=== PATIENT | female | born 1945 | race Hispanic/Latino ===

== ENCOUNTER 2017-04-27 06:36 | Inpatient (IN) | payer MEDICARE ==
[2017-04-26 16:32] VITALS: BMI 23.0
[2017-04-27] MEDS ORDERED: Propofol 10 mg/ml Inj (20 ML) ONE (07:14)
[2017-04-27] MEDS ORDERED: Succinylcholine 200 mg/10 ml Inj IV ONE (07:14)
[2017-04-27] MEDS ORDERED: Rocuronium 10 mg/ml (5 ml) ONE (07:15)
--- NOTE | 2017-04-27 07:47 | CP.PCM.CON ---
History of Present Illness - History of Present Illness History of Present Illness: 71yo female presents with LBP since 1995 after falling getting off a bus,pain waxing and waning over the years,becoming constant 5 years ago with radiation RLE and intermittant paresthesias,temporary relief with multiple epidural injections,pain meds and PT,amb independently,imaging showing lumbar spondylosis with HNP L5-S1,pt referred to neurosurgery for further eval,denies pelvic paresthesias,incontinance,further fall or trauma. Past Patient History - Infectious Disease Hx of Infectious Diseases: None - Tetanus Immunizations Tetanus Immunization: Unknown - Past Medical History & Family History Past Medical History?: Yes - Past Social History Smoking Status: Smoker Currrent Status Unknown - CARDIAC Hx Cardiac Disorders: No Hx Congestive Heart Failure: No Hx Hypercholesterolemia: No Hx Hypertension: Yes Hx Pacemaker: No - PULMONARY Hx Respiratory Disorders: No Hx Chronic Obstructive Pulmonary Disease (COPD): No - NEUROLOGICAL Hx Neurological Disorder: No HX Cerebrovascular Accident: No Hx Paralysis: No - HEENT Hx HEENT Problems: Yes Hx Cataracts: Yes Hx Macular Degeneration: Yes - RENAL Hx Chronic Kidney Disease: No Hx Renal Failure: No - ENDOCRINE/METABOLIC Hx Endocrine Disorders: Yes Hx Diabetes Mellitus Type 1: No Hx Diabetes Mellitus Type 2: Yes Hx Hypothyroidism: No - HEMATOLOGICAL/ONCOLOGICAL Hx Blood Disorders: No Hx Blood Transfusions: Yes Hx Blood Transfusion Reaction: No Hx Hepatitis C: Yes - INTEGUMENTARY Hx Dermatological Problems: No - MUSCULOSKELETAL/RHEUMATOLOGICAL Hx Musculoskeletal Disorders: No Hx Arthritis: No Hx Back Pain: Yes Hx Falls: No Hx Osteoarthritis: Yes Hx Rheumatoid Arthritis: No - GASTROINTESTINAL Hx Gastrointestinal Disorders: Yes Hx Gastritis: Yes Hx Gastroesophageal Reflux: Yes - GENITOURINARY/GYNECOLOGICAL Hx Genitourinary Disorders: No - PSYCHIATRIC Hx Emotional Abuse: No Hx Physical Abuse: No - SURGICAL HISTORY Hx Surgeries: Yes Hx Breast Biopsy: Yes (LUMPECTOMY R BREAST) Hx Cholecystectomy: Yes Hx Musculoskeletal Surgery: Yes (cervical disectomy 2008) Hx Orthopedic Surgery: Yes (right total knee replacement 2015) Other/Comment: GALLBLADDER SURGERY/CERVICAL SURGERY/EPIDURAL INJECTION - ANESTHESIA Hx Anesthesia: Yes Hx Anesthesia Reactions: No Hx Malignant Hyperthermia: No Meds Allergies/Adverse Reactions: Allergies Allergy/AdvReac Type Severity Reaction Status Date / Time No Known Allergies Allergy Verified 10/04/14 12:55 Results - Vital Signs Recent Vital Signs: Last Vital Signs Temp 97.9 F 04/27/17 07:27 Pulse 63 04/27/17 07:37 Resp 18 04/27/17 07:27 BP 121/63 04/27/17 07:27 Pulse Ox 96 04/27/17 07:27 - Labs Labs: Laboratory Results - last 24 hr 04/27/17 07:26 POC Glucose (mg/dL) 151 H Assessment & Plan - Assessment and Plan (Free Text) Assessment: 71 yo female with lumbar spondylosis and HNP right L5-S1 Plan: here today for proposed right hemilaminotomy L5-S1 with Dr. Cristobal,pt has failed conservative management and symptoms worsening effecting her ADL's,risks and benefits of surgery discussed with pt,expressed understanding and wishes to proceed.
[2017-04-27] MEDS ORDERED: Midazolam 2 MG/2 ML VIAL ONE (08:04)
[2017-04-27] MEDS ORDERED: Absorbable Gelatin Sponge Size 100 ONE (08:04)
[2017-04-27] MEDS ORDERED: Thrombin Topical 5,000 IU Spray Kit ONE (08:04)
[2017-04-27] MEDS ORDERED: Lidocaine 2% w Epi 1:100,000 Inj IJ ONE (08:05)
[2017-04-27] MEDS ORDERED: Bupivacaine HCl 0.5% PF (10 ml) Inj ONE (08:05)
[2017-04-27] MEDS ORDERED: Lactated Ringer's 1,000 ML IV ONE ×2 (08:38→09:32)
[2017-04-27] MEDS ORDERED: Absorbable Gelatin Sponge Size 100 TP ONE (09:31)
[2017-04-27] MEDS ORDERED: Neostigmine Methylsulfate 3mg/3ml Syringe IV ONE (09:36)
[2017-04-27] MEDS ORDERED: HEMOSTATIC MATRIX 10 ML DIS.NEEDLE TOP ONE (09:39)
[2017-04-27] MEDS ORDERED: HYDROmorphone 0.5 mg/0.5 ml ISec IVP PRN (10:10)
[2017-04-27] MEDS ORDERED: Oxycodone/Acetaminophen 5/325 mg Tab PO PRN (12:49)
--- NOTE | 2017-04-27 15:24 | CP.PCM.HP ---
History of Present Illness - History of Present Illness History of Present Illness: CC: S/P R L45S1 hemilaminectomy HPI: 71F with PMH DM II, HTN, Hyperlipidemia, Chronic back pain is s/p R L4-L5- S1 R hemilaminectomy after failing conservative therapy as an outpatient. Pt sustained a fall in 1995 getting off a bus. Initially the moderate to severe pain had been waxing and waning, however approximately 5 years ago, pain worsened to constant, radiating to the R lower extremity. Patient is seen in PACU, denies any complaints at this time. ROS: per HPI all other systems reviewed and neg by me PMD: Dr Felton PMH: DM II, HTN, Hyperlipidemia, chronic back pain PSH: Cholecystectomy, Cervical neck surgery, Breast lumpectomy( benign) , TKR ALLERGIES: NKDA MEDICATIONS: per reconciliation FH: Daughter DM II, Mother - Suicide at 39 years of age SH: Tobacco: 1 ppd since age 13 EtOH: denies Drugs: denies any illicit drug use Exam: GEN: WDWN, post-anesthesia HEENT: NCAT, PERRL, EOMI NECK: supple, no JVD, no lymphadenopathy CARDIAC: +S1S2 RRR LUNG: CTAB No WRR ABD: SOFT NT ND BSX4 NO MASSES NO HSM EXT: +pedal pulses, equal strength BACK: +amanda drain NEURO: AAOx3 SKIN warm, dry PSYCH normal mood, normal affect no labs available at this time repeat in AM MEDICATIONS 04/27/17 10:11 HYDROmorphone 0.2 MG/ML EQUIPMENT APPLICATION SPECIALIST [Dilaudid 0.2 MG/ML EQUIPMENT APPLICATION SPECIALIST] See Protocol IV PRN PRN Loading Bolus in m EQUIPMENT APPLICATION SPECIALIST Dose in m.2 Lockout interval in minutes: 10 Basal/Continuous dose in mg per hour: 0 Four hour (4) limit in m Inadequate analgesia after 1 hour increase EQUIPMENT APPLICATION SPECIALIST dose to __ m.2 Inadequate analgesia in 1 add hr, increase lockout inter min: 10 04/27/17 12:50 Cyclobenzaprine [Flexeril] 5 mg PO TID PRN 04/27/17 13:00 Lactated Ringer's 1,000 ml IV 75 mls/hr 04/27/17 17:00 Metformin HCl [Fortamet] 500 mg PO BID 04/27/17 21:00 ceFAZolin [Ancef] 1 gm Sodium Chloride 0.9% 100 ml IVPB Q12 04/28/17 08:06 Pneumococcal Vaccine Polyval [Pneumovax 23 Vaccine] 0.5 ml IM .ONCE ONE 04/28/17 09:00 Aspirin [Ecotrin] 81 mg PO DAILY Furosemide [Lasix] 40 mg PO DAILY Lisinopril [Zestril] 10 mg PO DAILY PARoxetine [Paxil] 20 mg PO DAILY Propranolol [Inderal LA] 60 mg PO DAILY Simvastatin [Zocor] 40 mg PO DAILY ASSESSMENT AND PLAN 71F with PMH DM II, HTN, Hyperlipidemia, Chronic back pain is s/p R L4-L5-S1 R hemilaminectomy after failing conservative therapy as an outpatient. Pt sustained a fall in 1995 getting off a bus. Initially the moderate to severe pain had been waxing and waning, however approximately 5 years ago, pain worsened to constant, radiating to the R lower extremity. Patient is seen in PACU, denies any complaints at this time. s/p R L4-S1 R hemilaminectomy and lumbar spondylosis Neurosurgery consult: Dr. Cristobal Pain management by Dr. Montoya, currently on Dilaudid facing baster jumpbasting cont flexeril stable Diabetes Mellitus stable accuchecks ISS lispro low dose cont metformin Hypertension, CAD hold ASA, cont lisinopril, cont lasix, cont inderal Hyperlipidemia cont statin Depression cont paxil VTE ppx per NSx Present on Admission - Present on Admission Any Indicators Present on Admission: No Past Patient History - Infectious Disease Hx of Infectious Diseases: None - Tetanus Immunizations Tetanus Immunization: Unknown - Past Medical History & Family History Past Medical History?: Yes - Past Social History Smoking Status: Smoker Currrent Status Unknown - CARDIAC Hx Cardiac Disorders: No Hx Congestive Heart Failure: No Hx Hypercholesterolemia: No Hx Hypertension: Yes Hx Pacemaker: No - PULMONARY Hx Respiratory Disorders: No Hx Chronic Obstructive Pulmonary Disease (COPD): No - NEUROLOGICAL Hx Neurological Disorder: No HX Cerebrovascular Accident: No Hx Paralysis: No - HEENT Hx HEENT Problems: Yes Hx Cataracts: Yes Hx Macular Degeneration: Yes - RENAL Hx Chronic Kidney Disease: No Hx Renal Failure: No - ENDOCRINE/METABOLIC Hx Endocrine Disorders: Yes Hx Diabetes Mellitus Type 1: No Hx Diabetes Mellitus Type 2: Yes Hx Hypothyroidism: No - HEMATOLOGICAL/ONCOLOGICAL Hx Blood Disorders: No Hx Blood Transfusions: Yes Hx Blood Transfusion Reaction: No Hx Hepatitis C: Yes - INTEGUMENTARY Hx Dermatological Problems: No - MUSCULOSKELETAL/RHEUMATOLOGICAL Hx Musculoskeletal Disorders: No Hx Arthritis: No Hx Back Pain: Yes Hx Falls: No Hx Osteoarthritis: Yes Hx Rheumatoid Arthritis: No - GASTROINTESTINAL Hx Gastrointestinal Disorders: Yes Hx Gastritis: Yes Hx Gastroesophageal Reflux: Yes - GENITOURINARY/GYNECOLOGICAL Hx Genitourinary Disorders: No - PSYCHIATRIC Hx Emotional Abuse: No Hx Physical Abuse: No - SURGICAL HISTORY Hx Surgeries: Yes Hx Breast Biopsy: Yes (LUMPECTOMY R BREAST) Hx Cholecystectomy: Yes Hx Musculoskeletal Surgery: Yes (cervical disectomy 2008) Hx Orthopedic Surgery: Yes (right total knee replacement 2015) Other/Comment: GALLBLADDER SURGERY/CERVICAL SURGERY/EPIDURAL INJECTION - ANESTHESIA Hx Anesthesia: Yes Hx Anesthesia Reactions: No Hx Malignant Hyperthermia: No Meds Allergies/Adverse Reactions: Allergies Allergy/AdvReac Type Severity Reaction Status Date / Time No Known Allergies Allergy Verified 10/04/14 12:55 Results - Vital Signs Recent Vital Signs: Last Vital Signs Temp 97.1 F L 04/27/17 10:35 Pulse 59 L 04/27/17 14:05 Resp 18 04/27/17 14:05 BP 121/66 04/27/17 14:05 Pulse Ox 100 04/27/17 14:05 - Labs Labs: Laboratory Results - last 24 hr 04/27/17 04/27/17 04/27/17 07:25 07:26 10:12 POC Glucose (mg/dL) 151 H 141 H Blood Type O NEGATIVE Antibody Screen Negative BBK History Checked Patient has bt
--- NOTE | 2017-04-27 16:27 | RAD ---
PROCEDURE: Intraoperative Fluoroscopy. HISTORY: PLIF FINDINGS: Fluoroscopic assistance was provided for . Please refer to the
--- NOTE | 2017-04-27 19:15 | OP ---
PROCEDURE DATE: 04/27/2017 PREOPERATIVE DIAGNOSES: Lumbar spondylosis and spondylolisthesis at 4-5, 5-1. PROCEDURE: Right L4-L5 and L5-S1 hemilaminotomy, medial facetectomy, decompression, L4-S1 posterolat eral fusion. Fluoroscopy has been used. SURGEON: Dr. Cristobal MERCHANDISING EXECUTION MANAGER: Tere Tatum. Dr. Tatum is a physician assistant manager trainee. She stayed throughou t the case from the beginning to the end, helped me perform the surgery. DESCRIPTION OF PROCEDURE: The patient was brought to the operating room, administered general endotr acheal anesthesia, placed in a prone position on a Fabian table. Care was taken to protect pressure points. Back of the lumbar area thoroughly prepped in standard sterile manner, after marking for sk in incision for lumbar laminectomy. After prepping and draping the area, skin has been incised. Ble eding skins have been controlled with bipolar shot coat tender. By using a Bovie shot coat tender, paraspinal mu scles have been detached from attachment of spinous process and lamina of L4-L5, S1 on the right side . Identification of the levels has been done with the help of fluoroscopy. Jess retractor has bee n applied to outer facet joint of L4-L5. Under microscope magnification and illumination, by using h igh-speed drill, the lamina of L4-L5 has been drilled. There is significant decrease in the interlam inar distance ____ medial facet hypertrophy. Drilling is continued until the top and bottom of the l igamentum is seen. Drilling is also continued on the medial part facets until the turn of the ligame ntum flavum has been seen. Once this has been done, thinned out surrounding lamina, medial part of t he facets, ligamentum flavum, buckled and thickened ligamentum flavum has been removed. Foraminotomy is performed. Disk space has been examined. There was a hard disk noted. Similarly at L5-S1, medi al facetectomy, hemilaminotomy performed. After that, the thinned out bone and the ligamentum flavum which is found to be buckled and thickened has been removed. The nerve root has been found to be ve ry swollen in this area. Foraminotomy has been performed. Disk space has been examined, hard disk n oted. After that, lateral aspect of facet joints have been decorticated, demineralized bone placed i n the area achieving a posterolateral fusion. Hemostasis best achieved. Fabian drain placed in the wound, brought out through a separate stab skin incision. Muscles and fascia closed with 1-0 Vicryl , subcutaneous with 3-0 Vicryl, skin has been closed with intradermal 3-0 Vicryl stitches. The patie nt tolerated the procedure. After procedure, mobilized to the recovery room in stable and awake cond ition. Ralph Cristobal MD cc: [phone] TT: 04/27/2017 19:14:13 sn
[2017-04-27] MEDS: Lactated Ringer's 1,000 ML IV SCH (20:00)
[2017-04-27] MEDS: ceFAZolin 1 GM in Sodium Chloride 0.9% 100 ML IVPB SCH (21:54)
[2017-04-27] MEDS: Insulin Lispro (humaLOG) 100 Units/ml Inj SC SCH (22:39)
[2017-04-28] MEDS: Lactated Ringer's 1,000 ML IV SCH (02:30)
[2017-04-28] MEDS: Insulin Lispro (humaLOG) 100 Units/ml Inj SC SCH ×3 (07:40→17:00)
[2017-04-28 07:43] VITALS: RESP 20
[2017-04-28] MEDS ORDERED: HYDROmorphone 0.5 mg/0.5 ml ISec IVP PRN (07:46)
[2017-04-28] MEDS ORDERED: Pneumococcal 23-Valent Vaccine IM ONE (08:06)
--- NOTE | 2017-04-28 08:26 | CP.PCM.PN ---
Subjective - Date & Time of Evaluation Date of Evaluation: 04/26/17 Time of Evaluation: 08:00 - Subjective Subjective: Patient sen and examined beside. Lying in bed in NAD. Pain is well controlled. Restless overnight. Denies any SOB, palpitations. Hemodynamcally stable, afebrile DILAN drain in place with 30 ml output overnight. Noticed to deactivate spontaneously Objective - Vital Signs/Intake and Output Vital Signs (last 24 hours): Temp Pulse Resp BP Pulse Ox 98.3 F 60 20 126/55 L 97 04/28/17 07:42 04/28/17 07:42 04/28/17 07:42 04/28/17 07:42 04/28/17 07:42 - Medications Medications: Current Medications Aspirin (Ecotrin) 81 mg PO DAILY [facility] Atorvastatin Calcium (Lipitor) 20 mg PO DAILY [facility] Cyclobenzaprine HCl (Flexeril) 5 mg PO TID PRN PRN Reason: Muscle spasm Furosemide (Lasix) 40 mg PO DAILY [facility] Hydromorphone HCl (Dilaudid) 1 mg IVP Q4 PRN PRN Reason: Pain, severe (8-10) Cefazolin Sodium 1 gm/ Sodium (Chloride) 100 mls @ 100 mls/hr IVPB Q12 [facility] Last Admin: 04/27/17 21:54 Dose: 100 mls/hr Insulin Human Lispro (Humalog) 0 units SC ACHS FITO PRN Reason: Protocol Last Admin: 04/28/17 07:40 Dose: Not Given Lisinopril (Zestril) 10 mg PO DAILY [facility] Metformin HCl (Glucophage) 500 mg PO BID [facility] Oxycodone HCl (Oxycodone Immediate Release Tab) 15 mg PO Q6 PRN PRN Reason: Pain, moderate (4-7) Paroxetine HCl (Paxil) 20 mg PO DAILY [facility] Propranolol HCl (Inderal La) 60 mg PO DAILY FITO - Constitutional Appears: Non-toxic, No Acute Distress - Head Exam Head Exam: ATRAUMATIC, NORMAL INSPECTION, NORMOCEPHALIC - Eye Exam Eye Exam: EOMI, Normal appearance, PERRL Pupil Exam: NORMAL ACCOMODATION - ENT Exam ENT Exam: Mucous Membranes Moist, Normal Exam - Neck Exam Neck Exam: Full ROM, Normal Inspection - Respiratory Exam Respiratory Exam: Clear to Ausculation Bilateral, NORMAL BREATHING PATTERN. absent: Rhonchi, Wheezes, Respiratory Distress - Cardiovascular Exam Cardiovascular Exam: REGULAR RHYTHM, RRR, +S1, +S2. absent: JVD - GI/Abdominal Exam GI & Abdominal Exam: Soft, Normal Bowel Sounds. absent: Distended, Guarding, Tenderness, Rebound - Rectal Exam Rectal Exam: Deferred - Extremities Exam Extremities Exam: Full ROM, Normal Capillary Refill, Normal Inspection. absent : Calf Tenderness, Pedal Edema - Neurological Exam Neurological Exam: Alert, Awake, CN II-XII Intact, Oriented x3 - Psychiatric Exam Psychiatric exam: Normal Affect, Normal Mood - Skin Skin Exam: Dry, Intact, Normal Color, Warm Assessment and Plan - Assessment and Plan (Free Text) Assessment: 71 y/o F with PMH DM II, HTN, Hyperlipidemia, Chronic back pain is s/p R L4-L5- S1 R hemilaminectomy after failing conservative therapy as an outpatient. Pt sustained a fall in 1995 getting off a bus. Initially the moderate to severe pain had been waxing and waning, however approximately 5 years ago, pain worsened to constant, radiating to the R lower extremity. At present post op #1 , doing well. 1.Chronic back pain -- s/p R L4-S1 R hemilaminectomy and lumbar spondylosis POD # 1 DILAN drain with 30 ml out put last 12 hours Pain is controlled on WOOD DRILLING MACHINE OPERATOR pump. Will d/c pump and start Po meds as per pain management Continue flexeril Received 3 doses of ancef empiricaly Continue incentive spirometry PT eval Neurosurgery Dr. Cristobal following 2.Diabetes Mellitus controlled accuchecks ISS lispro low dose cont metformin 3.Hypertension, CAD hold ASA, cont lisinopril, cont lasix, cont inderal 4.Hyperlipidemia cont statin 5.Depression cont paxil 6.VTE ppx per NSx
[2017-04-28] MEDS ORDERED: Propranolol 60 mg ER Cap PO SCH (09:00)
[2017-04-28] MEDS: ceFAZolin 1 GM in Sodium Chloride 0.9% 100 ML IVPB SCH (09:00)
[2017-04-28] MEDS: oxyCODONE 5 mg Immediate Release Tab PO PRN ×2 (11:16→17:07)
--- NOTE | 2017-04-28 15:10 | CP.PCM.DIS ---
Provider - Provider Date of Admission: 04/27/17 12:42 Attending physician: Trent Dickerson MD Primary care physician: Kvng Felton MD Consults: PT eval Time Spent in preparation of Discharge (in minutes): 20 Hospital Course - Lab Results Lab Results: Most Recent Lab Values POC Glucose (mg/dL) 178 mg/dL (65-110) H 04/28/17 11:08 Blood Type O NEGATIVE 04/27/17 07:25 Antibody Screen Negative 04/27/17 07:25 BBK History Checked Patient has bt 04/27/17 07:25 - Hospital Course Hospital Course: 71 y/o F with PMH DM II, HTN, Hyperlipidemia, Chronic back pain is s/p R L4-L5- S1 R hemilaminectomy after failing conservative therapy as an outpatient. Pt sustained a fall in 1995 getting off a bus. Initially the moderate to severe pain had been waxing and waning, however approximately 5 years ago, pain worsened to constant, radiating to the R lower extremity. She underwent L4-s1 right hemilaminectomy. At present post op #1, doing well.DILAN drain remove. Pt eval appreciated. Patient doing well, gait stable. Will d/c patient home on pain management. Follow up with PMD Dr. Felton and Dr. lynn. 1.Chronic back pain -- s/p R L4-S1 R hemilaminectomy and lumbar spondylosis POD # 1 2.Diabetes Mellitus 3.Hypertension, CAD 4.Hyperlipidemia 5.Depression 6.VTE ppx promote ambulation at home and ASA Discharge Exam - Head Exam Head Exam: ATRAUMATIC, NORMAL INSPECTION, NORMOCEPHALIC - Eye Exam Eye Exam: EOMI, Normal appearance, PERRL Pupil Exam: NORMAL ACCOMODATION - ENT Exam ENT Exam: Mucous Membranes Moist, Normal Exam - Neck Exam Neck exam: Full Rom, Normal Inspection - Respiratory Exam Respiratory Exam: Clear to PA & Lateral, NORMAL BREATHING PATTERN. absent: Rales, Rhonchi, Wheezes - Cardiovascular Exam Cardiovascular Exam: REGULAR RHYTHM, RRR, +S1, +S2. absent: JVD - GI/Abdominal Exam GI & Abdominal Exam: Normal Bowel Sounds, Soft. absent: Distended, Guarding, Rebound, Tenderness - Rectal Exam Rectal Exam: Deferred - Extremities Exam Extremities exam: normal capillary refill, normal inspection, pedal pulses present - Back Exam Back exam: NORMAL INSPECTION - Neurological Exam Neurological exam: Alert, CN II-XII Intact, Oriented x3, Reflexes Normal - Psychiatric Exam Psychiatric exam: Normal Affect, Normal Mood - Skin Skin Exam: Dry, Intact, Normal Color, Warm Discharge Plan - Discharge Medications Prescriptions: Cyclobenzaprine [Flexeril] 5 mg PO TID PRN #30 tab PRN Reason: Muscle Spasm oxyCODONE [oxyCODONE Immediate Release Tab] 15 mg PO Q6 PRN #30 tab PRN Reason: Pain, Severe (8-10) - Follow Up Plan Condition: GOOD Disposition: HOME/ ROUTINE Patient education suggested?: Yes Instructions: Laminectomy (DC) Referrals: Kvng Felton MD [Primary Care Provider] -
[2017-04-28 16:25] VITALS: BP 126/63; PULSE 60; TEMP 98.4; O2SAT 97
== END 2017-04-28 19:00 | disposition home or self-care (01) | DRG 460 ==
LOC: H.OPSURG 06:36 → H.MEDSURG1 12:42
PROVIDERS: ADMIT Hospitalist; ATTEND Hospitalist
PROC: 0SG30Z1 (ICD-10-PCS; principal; 2017-04-27 10:45)
DX: M47.816 Spondylosis without myelopathy or radiculopathy, lumbar region (principal); E11.9 Type 2 diabetes mellitus without complications; I10 Essential (primary) hypertension; M43.17 Spondylolisthesis, lumbosacral region; E78.5 Hyperlipidemia, unspecified; G89.29 Other chronic pain; I25.10 Atherosclerotic heart disease of native coronary artery without angina pectoris; F32.9 Major depressive disorder, single episode, unspecified

== ENCOUNTER 2017-12-07 09:57 | Day surgery (SDC) | payer MEDICARE ==
[2017-04-26 16:32] VITALS: BMI 23.0
[2017-12-07] MEDS ORDERED: MethylPREDNISolone Depo 40 mg/ml Inj ONE (10:54)
[2017-12-07] MEDS ORDERED: Bupivacaine HCl 0.25% PF (10 ml) Inj ONE (10:55)
[2017-12-07] MEDS ORDERED: Lidocaine 1% Inj (20ml) ONE (10:55)
[2017-12-07] MEDS ORDERED: Iohexol 300 10 ML ONE (10:55)
[2017-12-07 11:25] VITALS: RESP 18
[2017-12-07] MEDS ORDERED: Lidocaine 1% 5ml Abboject IV ONE (11:29)
[2017-12-07] MEDS ORDERED: Propofol 10 mg/ml Inj (20 ML) ONE (11:29)
[2017-12-07] MEDS ORDERED: Lactated Ringer's 1,000 ML IV ONE (11:35)
[2017-12-07] MEDS ORDERED: methylPREDNISolone Depo 80 mg/ml Inj IM ONE (11:42)
[2017-12-07] MEDS ORDERED: Lidocaine 1% Inj (20ml) IJ ONE (11:42)
[2017-12-07] MEDS ORDERED: Bupivacaine HCl 0.25% PF (10 ml) Inj IJ ONE (11:42)
[2017-12-07] MEDS ORDERED: Iohexol 300 100 ML IJ ONE (11:42)
[2017-12-07] MEDS ORDERED: Lactated Ringer's 1,000 ML IV SCH (12:00)
[2017-12-07] MEDS ORDERED: Sodium Chloride 0.9% 1,000 ML IV ONE (12:20)
[2017-12-07] MEDS ORDERED: Sodium Chloride 0.9% 1,000 ML IV SCH (12:30)
[2017-12-07 15:58] VITALS: BP 100/62; PULSE 60; TEMP 98; O2SAT 96
--- NOTE | 2017-12-07 17:32 | OP ---
PROCEDURE DATE: 12/07/2017 PREOPERATIVE DIAGNOSIS: Lumbar radiculopathy. POSTOPERATIVE DIAGNOSIS: Lumbar radiculopathy. PROCEDURE: Right L3-4, L4-5, L5-S1 transforaminal epidural steroid injection. SURGEON: Frank Montoya MD. TYPE OF ANESTHESIA: Monitored anesthesia care. ANESTHESIA ADMINISTERED BY: Kvng Lock MD. COMPLICATIONS: None. SPECIMEN: None. DESCRIPTION OF PROCEDURE: After we had discussion of the procedure with the patient including its risks, benefits, alternatives, outcome data, possibility of no effect or increased pain, the patient consented to the procedure. She denies any recent infections, bleeding tendencies or being on anticoagulants. The decision was then made to proceed to the OR. The patient was placed on a fluoroscopy table in a prone position with 2 pillows underneath her abdomen. The back was prepped and draped in the usual sterile fashion and sterile technique was adhered to during the entire procedure. The L3, L4 and L5 vertebral levels were first identified in the anteroposterior view. Angulation towards the right at approximately 25 degrees was used to maximize the visualization of the right L3, L4 and L5 pedicles. The skin overlying the 6 o'clock position of all three pedicles was infiltrated with 1% lidocaine using 25-gauge needle. Subsequently, a 22-gauge 3.5-inch spinal needle was incrementally advanced under fluoroscopic guidance until tip of needle worked into the intravertebral foramen. There was difficulty accessing the right L3-4 intravertebral foramen due to bone spurs, so the needle was placed right outside the desired spot. After satisfactory position of all 3 needles, approximately 0.5 mL of Isovue contrast was injected showing appropriate spread at the L4-5, L5-S1 level. After ruling out of CSF or intravenous involvement, approximately 3 mL of 0.25% Marcaine and Depo-Medrol mixture was injected into each needle. At the end of the case, the needles were removed and the patient's back was cleaned and dried. Bandages were applied. The patient was then transferred to the recovery area in good conditions without any signs of PRO SHOP ATTENDANT toxicity or any neurological deficits. She will have a followup in our office in approximately 2 to 4 weeks. Frank Montoya MD
--- NOTE | 2017-12-08 16:24 | RAD ---
PROCEDURE: Lumbar Epidural Injection HISTORY: PAIN MANAGEMENT TECHNIQUE: Fluoroscopic guidance was provided for epidural injection for pain management purposes. FINDINGS: Multiple lead needles are identified placed at at 3 mid to inferior lumbar neural foramina with limited contrast injected at the 1st and 3rd but not at the minimal needle. 43.4 minutes of fluoro time was utilized with a total radiation dose of 7.97 mGy. IMPRESSION: Fluoroscopic guidance provided for epidural injection. Please refer procedure.
== END 2017-12-07 15:15 | disposition home or self-care (01) ==
LOC: H.OPSURG 09:57
PROVIDERS: ATTEND Anesthesiology
DX: M54.16 Radiculopathy, lumbar region (principal); E11.9 Type 2 diabetes mellitus without complications; E78.5 Hyperlipidemia, unspecified; I10 Essential (primary) hypertension; F32.9 Major depressive disorder, single episode, unspecified
CPT/HCPCS: 64483; 82948; J1030; J1040; J2704; J7040; J7120; Q9967

== ENCOUNTER 2018-02-01 06:18 | Inpatient (IN) | payer MEDICARE ==
[2017-04-26 16:32] VITALS: BMI 23.0
[2018-02-01] MEDS ORDERED: Bupivacaine HCl 0.25% PF (30 ml) Inj ONE (07:12)
[2018-02-01] MEDS ORDERED: Lidocaine 1% w Epi 1:100,000 Inj ONE (07:12)
[2018-02-01] MEDS ORDERED: Thrombin Topical 5,000 Int Units Spray Kit ONE (07:13)
[2018-02-01] MEDS ORDERED: Absorbable Gelatin Sponge Size 100 ONE (07:13)
[2018-02-01] MEDS ORDERED: Phenylephrine 10 mg/ml Inj ONE (07:20)
[2018-02-01] MEDS ORDERED: Neostigmine 1:1000 (1 mg/ml) Inj ONE (07:20)
[2018-02-01] MEDS ORDERED: Succinylcholine 200 mg/10 ml Inj IV ONE (07:26)
[2018-02-01] MEDS ORDERED: Etomidate 20 mg/10ml Inj IV ONE (07:26)
[2018-02-01] MEDS ORDERED: Rocuronium 10 mg/ml (5 ml) ONE ×2 (07:26→09:14)
[2018-02-01] MEDS ORDERED: Propofol 10 mg/ml Inj (20 ML) ONE (07:26)
--- NOTE | 2018-02-01 07:26 | CP.PCM.HP ---
History of Present Illness - History of Present Illness History of Present Illness: This is a 72 y/o female with PMHx of HTN , Hep C, and DM as well as previous lumbar hemilaminotomy by me in the past who presents with progressive LBP. She states that after her initial surgery in 2017 she had relief but started to develop new LBP that is exacerbated with positioning and prolonged ambulation. It is also associated with paresthesias down BL LE and subjective " heaviness" She has been taking PO analgesia such as ibuprofen and oxycodone with minimal relief. Patient followed up with Dr. Cristobal who did follow up imaging revealing spondylolithesis and facet hypertrophy. Due to failed conservative management and previous surgical decompression, she is seeking further surgical intervention for symptom relief. She denies urinary or bowel incontinence. Present on Admission - Present on Admission Any Indicators Present on Admission: No Review of Systems - Integumentary Integumentary: As Per HPI - Neurological Neurological: As Per HPI Past Patient History - Infectious Disease Hx of Infectious Diseases: None - Tetanus Immunizations Tetanus Immunization: Unknown - Past Medical History & Family History Past Medical History?: Yes - Past Social History Smoking Status: Never Smoked - CARDIAC Hx Cardiac Disorders: No Hx Congestive Heart Failure: No Hx Hypercholesterolemia: No Hx Hypertension: Yes Hx Pacemaker: No - PULMONARY Hx Respiratory Disorders: No Hx Chronic Obstructive Pulmonary Disease (COPD): No - NEUROLOGICAL Hx Neurological Disorder: No HX Cerebrovascular Accident: No Hx Paralysis: No - HEENT Hx HEENT Problems: Yes Hx Cataracts: Yes Hx Macular Degeneration: Yes - RENAL Hx Chronic Kidney Disease: No Hx Renal Failure: No - ENDOCRINE/METABOLIC Hx Endocrine Disorders: Yes Hx Diabetes Mellitus Type 1: No Hx Diabetes Mellitus Type 2: Yes Hx Hypothyroidism: No - HEMATOLOGICAL/ONCOLOGICAL Hx Blood Disorders: No Hx Blood Transfusions: Yes Hx Blood Transfusion Reaction: No Hx Hepatitis C: Yes - INTEGUMENTARY Hx Dermatological Problems: No - MUSCULOSKELETAL/RHEUMATOLOGICAL Hx Musculoskeletal Disorders: No Hx Arthritis: No Hx Back Pain: Yes Hx Falls: No Hx Osteoarthritis: Yes Hx Rheumatoid Arthritis: No - GASTROINTESTINAL Hx Gastrointestinal Disorders: Yes Hx Gastritis: Yes Hx Gastroesophageal Reflux: Yes - GENITOURINARY/GYNECOLOGICAL Hx Genitourinary Disorders: No - PSYCHIATRIC Hx Psychophysiologic Disorder: Yes Hx Anxiety: Yes Hx Depression: Yes Hx Emotional Abuse: No Hx Physical Abuse: No Hx Substance Use: No - SURGICAL HISTORY Hx Surgeries: Yes Hx Breast Biopsy: Yes (LUMPECTOMY R BREAST) Hx Cholecystectomy: Yes Hx Musculoskeletal Surgery: Yes (cervical disectomy 2008) Hx Orthopedic Surgery: Yes (right total knee replacement 2016) Other/Comment: GALLBLADDER SURGERY/CERVICAL SURGERY/EPIDURAL INJECTION - ANESTHESIA Hx Anesthesia: Yes Hx Anesthesia Reactions: No Hx Malignant Hyperthermia: No Has any member of the family had a problem w/ anesthesia?: No Meds Allergies/Adverse Reactions: Allergies Allergy/AdvReac Type Severity Reaction Status Date / Time No Known Allergies Allergy Verified 12/07/17 11:19 Physical Exam - Neurological Exam Neurological exam: Motor Sensory Deficit Additional comments: A&Ox3 CN intact GORDON positive SLR BL to 30 degrees IP: 4/5 BL pain limited quad: 4/5 pain limited other LE motor 5/5 thorughout sensation intact to LT neg clonus Results - Vital Signs Recent Vital Signs: Last Vital Signs Temp 97.8 F 02/01/18 06:57 Pulse 59 L 02/01/18 07:01 Resp 20 02/01/18 06:57 BP 141/63 02/01/18 06:57 Pulse Ox 97 02/01/18 06:57 - Labs Labs: Laboratory Results - last 24 hr 02/01/18 07:03 POC Glucose (mg/dL) 160 H - Imaging and Cardiology MRI L spine Status: Image reviewed by me, Report reviewed by me Assessment & Plan - Assessment and Plan (Free Text) Assessment: LUmbar spondylolithesis and facet arthropathy Plan: Patient presented to Dr. Cristobal's office with above S&S imaging reviewed with patient and furhter surgical intervention ( lumbar PSF ) offered Risks, benefits and alternatives explained. Risks such as hemorrhage, infection, CSF leak, weakness, numbness, failure of surgery and /or need for further surgery explained. The patient expressed understanding, all questions answered and she wishes to proceed with proposed procedure.
[2018-02-01] MEDS ORDERED: Midazolam 2 MG/2 ML VIAL ONE (07:29)
[2018-02-01] MEDS ORDERED: Lactated Ringer's 500 ML IV ONE ×3 (07:35→08:44)
[2018-02-01] MEDS ORDERED: Lidocaine 4% (Laryng-O-Jet) Kit MM ONE (07:40)
[2018-02-01] MEDS ORDERED: ePHEDrine 50 mg/ml Inj ONE (07:50)
[2018-02-01] MEDS ORDERED: Lidocaine/Epi 1% 1:100000 20 ML IJ ONE (07:55)
[2018-02-01] MEDS ORDERED: Labetalol 5mg/ml (4ml) ONE (08:03)
[2018-02-01] MEDS ORDERED: HEMOSTATIC MATRIX 10 ML DIS.NEEDLE TOP ONE (08:30)
[2018-02-01] MEDS ORDERED: Absorbable Gelatin Sponge Size 100 TP ONE ×2 (08:46→10:07)
[2018-02-01] MEDS ORDERED: Thrombin Topical 5,000 Int Units Spray Kit TOP ONE ×2 (08:46→10:07)
[2018-02-01] MEDS ORDERED: Sodium Chloride 0.9% 1,000 ML IV ONE (08:58)
[2018-02-01] MEDS ORDERED: Calcium Chloride 1000 mg/10 ml Syringe IV ONE (09:14)
[2018-02-01] MEDS ORDERED: Bupivacaine HCl 0.25% PF (30 ml) Inj IJ ONE (10:48)
--- NOTE | 2018-02-01 11:10 | RAD ---
PROCEDURE: Intraoperative Fluoroscopy. HISTORY: PLIF FINDINGS: Fluoroscopic assistance was provided for 61.1 seconds fluoroscopy time utilized during this procedure. Radiation dose = 23.19 mGy. Please refer to the operative report from DIAZ Sullivan.
[2018-02-01] MEDS: HYDROmorphone 0.5 mg/0.5 ml ISec IVP PRN ×2 (11:25→11:40)
[2018-02-01] MEDS ORDERED: HYDROmorphone 0.5 mg/0.5 ml ISec ONE (11:28)
--- NOTE | 2018-02-01 11:36 | PCM.SURG1 ---
Surgeon's Initial Post Op Note - Surgeon's Notes Surgeon: Ralph Cristobal MD Motor Racer: Martín lCeaning Type of Anesthesia: General Endo Anesthesia Administered By: Dr Montoya Pre-Operative Diagnosis: LUmbar spondylosis Operative Findings: extensive scar tissue L4-S1 , evidence of previous R L4-5 laminotomy,. facet arthropathy Post-Operative Diagnosis: same Operation Performed: Decompressive R L5-S1 lamintomy ,. posterior instrumented fusion L4-S1 with right sided distraction. Specimen/Specimens Removed: none Estimated Blood Loss: EBL {In ML}: 400 Blood Products Given: PRBC (2 unit) Drains Used: Fabian Medellin (x 2 BL ) Post-Op Condition: Good Date of Surgery/Procedure: 02/01/18 Time of Surgery/Procedure: 08:00
[2018-02-01] MEDS ORDERED: Naloxone 0.4 mg/ml Inj (Adult) IVP PRN (11:50)
[2018-02-01] MEDS: HYDROmorphone 0.5 mg/0.5 ml ISec ONE ×2 (12:25→12:55)
--- NOTE | 2018-02-01 13:42 | CP.PCM.HP ---
History of Present Illness - History of Present Illness History of Present Illness: 72 yo female with history of DM2, HTN, HLD and Chronic Low Back Pain had hemilaminectomy last year relieving her from pain only to come back after 3 months in July,. The pain progressively got worse and was associated with radiculopathy on the right leg. With failed conservative management and previous surgical intervention, patient had Decompressive right L5-S1 laminectomy and spinal fusion of L4-S1 today. Present on Admission - Present on Admission Any Indicators Present on Admission: No History of DVT/PE: No History of Uncontrolled Diabetes: No Urinary Catheter: No Decubitus Ulcer Present: No Review of Systems - Review of Systems All systems: reviewed and no additional remarkable complaints except (aside from those mentioned above, 14 point system review were negative by me) Past Patient History - Infectious Disease Hx of Infectious Diseases: None - Tetanus Immunizations Tetanus Immunization: Unknown - Past Medical History & Family History Past Medical History?: Yes - Past Social History Smoking Status: Light Smoker < 10 Cigarettes Daily Alcohol: Other (quit drinking 5 yrs ago) Drugs: Denies - CARDIAC Hx Congestive Heart Failure: No Hx Hypercholesterolemia: No Hx Hypertension: Yes Hx Pacemaker: No - PULMONARY Hx Chronic Obstructive Pulmonary Disease (COPD): No Hx Emphysema: Yes - NEUROLOGICAL Hx Neurological Disorder: No HX Cerebrovascular Accident: No Hx Paralysis: No - HEENT Hx HEENT Problems: Yes Hx Cataracts: Yes Hx Macular Degeneration: Yes - RENAL Hx Chronic Kidney Disease: No Hx Renal Failure: No - ENDOCRINE/METABOLIC Hx Endocrine Disorders: Yes Hx Diabetes Mellitus Type 1: No Hx Diabetes Mellitus Type 2: Yes Hx Hypothyroidism: No - HEMATOLOGICAL/ONCOLOGICAL Hx Blood Transfusions: Yes Hx Blood Transfusion Reaction: No Hx Hepatitis C: Yes - INTEGUMENTARY Hx Dermatological Problems: No - MUSCULOSKELETAL/RHEUMATOLOGICAL Hx Arthritis: No Hx Back Pain: Yes Hx Falls: No Hx Herniated Disk: Yes Hx Osteoarthritis: Yes Hx Rheumatoid Arthritis: No - GASTROINTESTINAL Hx Gastrointestinal Disorders: Yes Hx Gastritis: Yes Hx Gastroesophageal Reflux: Yes - GENITOURINARY/GYNECOLOGICAL Hx Genitourinary Disorders: No - PSYCHIATRIC Hx Psychophysiologic Disorder: Yes Hx Anxiety: Yes Hx Depression: Yes Hx Emotional Abuse: No Hx Physical Abuse: No Hx Substance Use: No - SURGICAL HISTORY Hx Surgeries: Yes Hx Breast Biopsy: Yes (LUMPECTOMY R BREAST) Hx Cholecystectomy: Yes Hx Musculoskeletal Surgery: Yes (cervical disectomy 2008) Hx Orthopedic Surgery: Yes (right total knee replacement 2015) Other/Comment: GALLBLADDER SURGERY/CERVICAL SURGERY/EPIDURAL INJECTION - ANESTHESIA Hx Anesthesia: Yes Hx Anesthesia Reactions: No Hx Malignant Hyperthermia: No Has any member of the family had a problem w/ anesthesia?: No Meds Allergies/Adverse Reactions: Allergies Allergy/AdvReac Type Severity Reaction Status Date / Time No Known Allergies Allergy Verified 12/07/17 11:19 Physical Exam - Constitutional Appears: No Acute Distress - Head Exam Head Exam: ATRAUMATIC - Eye Exam Eye Exam: absent: Scleral icterus - ENT Exam ENT Exam: Mucous Membranes Moist - Neck Exam Neck exam: Negative for: Meningismus - Respiratory Exam Respiratory Exam: absent: Rales, Rhonchi, Wheezes, Respiratory Distress - Cardiovascular Exam Cardiovascular Exam: REGULAR RHYTHM, +S1, +S2 - GI/Abdominal Exam GI & Abdominal Exam: Soft. absent: Tenderness - Rectal Exam Rectal Exam: Deferred - Neurological Exam Neurological exam: Alert, Oriented x3 - Psychiatric Exam Psychiatric exam: Normal Affect - Skin Skin Exam: Dry, Intact Results - Vital Signs Recent Vital Signs: Last Vital Signs Temp 97.9 F 02/01/18 12:55 Pulse 61 02/01/18 12:55 Resp 18 02/01/18 12:55 BP 142/74 02/01/18 12:55 Pulse Ox 99 02/01/18 12:55 - Labs Labs: Laboratory Results - last 24 hr 02/01/18 02/01/18 02/01/18 07:03 07:20 11:17 POC Glucose (mg/dL) 160 H 159 H Blood Type O NEGATIVE Antibody Screen Negative Crossmatch See Detail BBK History Checked Patient has bt Assessment & Plan - Assessment and Plan (Free Text) Assessment: 72 yo female with history of DM2, HTN, HLD and Chronic Low Back Pain had hemilaminectomy last year relieving her from pain only to come back after 3 months in July,. The pain progressively got worse and was associated with radiculopathy on the right leg. With failed conservative management and previous surgical intervention, patient had Decompressive right L5-S1 laminectomy and spinal fusion of L4-S1 today. 1. Low Back Pain s/p Laminectomy and Spinal Fusion pain management via [employer] pump with Morphine Dr Cristobal on neurosurgical consult 2. DM2 BS controlled resume Januvia 50mg PO daily tomorrow HgA1C, BMP in am 3. HTN BP stable continue Lisinopril and Propranolol 4. HLD Lipitor 40mg PO daily 5. DVT prophylaxis venodyne boots while in bed
[2018-02-01] MEDS: Sodium Chloride 0.9% 1,000 ML IV SCH ×3 (15:25→22:44)
[2018-02-01] MEDS ORDERED: ceFAZolin 1 GM in Sodium Chloride 0.9% 100 ML IVPB SCH (17:00)
[2018-02-01] MEDS: Insulin Lispro (humaLOG) 100 Units/ml Inj SC SCH ×2 (18:20→22:38)
--- NOTE | 2018-02-01 21:46 | OP ---
PROCEDURE DATE: 02/01/2018 PREOPERATIVE DIAGNOSES: Lumbar spondylosis, spondylolisthesis, and spinal instability. POSTOPERATIVE DIAGNOSES: Lumbar spondylosis, spondylolisthesis, and spinal instability. PROCEDURE: Right-sided L4-5 and L5-S1 extended hemilaminotomy, medial facetectomy, removal of scar tissue and decompression of the nerve roots and L4-S1 pedicle screw fixation and instrumentation using spinal element system, and L4-S1 posterolateral fusion. SURGEON: Ralph Cristobal MD MULE RIDER: YOLETTE Connolly. Martín Cleaning stayed throughout the case. He helped me to perform the surgery. DESCRIPTION OF PROCEDURE: The patient was brought to the operating room, anesthetized with general endotracheal anesthesia, and placed in a prone position on the Fabian table. Care was taken to protect all pressure points. Back of the lumbar area thoroughly prepped and draped in same sterile manner after marking was consent for lumbar laminectomy at L4-S1. The skin has been incised. Bleeding skin has been controlled by bipolar lithograph press operator. After using a Bovie lithograph press operator, paraspinal muscles have been detached, attachments of spinous process and lamina of L4-S1 on the right side care was taken seems the patient had previous laminotomy in this area. After that by using traditional landmarks, point of entry has been noted for the pedicle screws at L4-5 and S1. Initially, a K-wire, later a drill has been used, and polyaxial titanium screws of spinal elements have been placed at L4-5 and S1. Titanium rods had been placed, cap nuts had been used in order to secure them. After that, all these has been done under fluoroscopy control. Later under microscopic magnification and illumination on the right side, hemilaminotomy has been further extended by drilling away some of the border at L5-S1 in the lamina as well as medial part of the facets. By using a fine Kerrison punch, all the thinned out bone has been removed including medial part of the facet. Similarly at L4-5, the extended laminotomy, medial facetectomy has been performed decompressing this area. Hemostasis best achieved, lateral aspect of the facet joint and transverse process have been decorticated, demineralized bone placed in the area achieving a posterolateral fusion. Hemostasis best achieved. Fabian drain was placed in the wound, brought out through a separate stab skin incision. Muscles and fascia were closed with 1 Vicryl, subcutaneous with 3 Vicryl, and skin had been closed with intradermal 3 Vicryl stitches. The patient tolerated the procedure. After the procedure, mobilized to the recovery room in stabilized condition. Ralph Cristobal MD
[2018-02-02] MEDS: Sodium Chloride 0.9% 1,000 ML IV SCH ×2 (04:22→06:22)
[2018-02-02] MEDS: Insulin Lispro (humaLOG) 100 Units/ml Inj SC SCH ×4 (07:21→22:23)
--- NOTE | 2018-02-02 08:22 | CP.PCM.PN ---
Subjective - Date & Time of Evaluation Date of Evaluation: 02/02/18 Time of Evaluation: 07:30 - Subjective Subjective: Patient seen and examined at bedside comfortable. Pain is controlled. Tolerating diet. No acute events overnight. Objective - Vital Signs/Intake and Output Vital Signs (last 24 hours): Temp Pulse Resp BP Pulse Ox 98.8 F 83 20 150/78 98 02/02/18 08:00 02/02/18 08:00 02/02/18 08:00 02/02/18 08:00 02/02/18 08:00 Intake and Output: 02/02/18 02/02/18 06:59 18:59 Intake Total 1045 Output Total 685 Balance 360 - Medications Medications: Current Medications Atorvastatin Calcium (Lipitor) 20 mg PO DAILY [facility] Dexamethasone (Decadron) 4 mg PO Q8 [facility] Last Admin: 02/02/18 00:40 Dose: 4 mg Docusate Sodium (Colace) 100 mg PO BID [facility] Last Admin: 02/01/18 18:19 Dose: 100 mg Furosemide (Lasix) 40 mg PO DAILY [facility] Sodium Chloride (Sodium Chloride 0.9%) 1,000 mls @ 100 mls/hr IV .Q10H [facility] Last Admin: 02/01/18 22:44 Dose: Not Given Sodium Chloride (Sodium Chloride 0.9%) 1,000 mls @ 75 mls/hr IV .[id number] [facility] Stop: 02/02/18 12:16 Last Admin: 02/02/18 06:22 Dose: 75 mls/hr Cefazolin Sodium 1 gm/ (Dextrose) 100 mls @ 100 mls/hr IVPB Q8 [facility] PRN Reason: Protocol Last Admin: 02/02/18 00:43 Dose: 100 mls/hr Insulin Human Lispro (Humalog) 0 units SC ACCU-CHECK [facility] PRN Reason: Protocol Last Admin: 02/02/18 07:21 Dose: 2 units Lisinopril (Zestril) 10 mg PO DAILY [facility] Morphine Sulfate (Morphine Tube Skiver 1 Mg/Ml) 0 mg IV PRN PRN; Protocol PRN Reason: Pain, moderate (4-7) Multivitamins/Minerals (Therapeutic-M Tab) 1 tab PO DAILY [facility] Naloxone HCl (Narcan) 0.1 mg IVP Q2M PRN PRN Reason: Opiate reversal Pantoprazole Sodium (Protonix Ec Tab) 40 mg PO DAILY [facility] Paroxetine HCl (Paxil) 20 mg PO DAILY [facility] Propranolol HCl (Inderal La) 60 mg PO DAILY [facility] Sennosides (Senokot Tab) 17.2 mg PO HS [facility] Last Admin: 02/01/18 22:43 Dose: 17.2 mg Sitagliptin Phosphate (Januvia) 50 mg PO DAILY [facility] - Back Exam Additional comments: Dressings clean dry and intact. DILAN drains x 2 with mild sangiunous drainage. mild tenderness. no erythema - Neurological Exam Neurological Exam: Alert, Awake, Oriented x3 Neuro motor strength exam: Left Lower Extremity: 5, Right Lower Extremity: 5 Additional comments: Sensation intact SP/DP/TN bilaterally Assessment and Plan (1) Status post lumbar laminectomy Assessment & Plan: Patient is POD#1 from decompressive R L5-S1 lamintomy and posterior instrumented fusion L4-S1 -pain control, recommend transition to prn meds -recommend hematology consult due to high blood loss during surgery and high drain output, despite HGB stable -PT/OT WBAT -will leave drains in, continue to monitor output, continue postop abx while drains in -case and plan d/w in agreement Status: Acute
[2018-02-02] MEDS: Pantoprazole 40 mg EC Tab PO SCH (08:40)
[2018-02-02] MEDS: Multivitamin With Minerals Tab PO SCH (08:41)
[2018-02-02] MEDS: Propranolol 60 mg ER Cap PO SCH (09:07)
[2018-02-02 09:11] LABS: HEMOGLOBIN 11.5 g/dL (12.0-16.0); MEAN CELL VOLUME 91.2 fl (81.0-99.0); MEAN CORPUSCULAR HEMOGLOBIN 30.4 pg (27.0-31.0); MEAN CORPUSCULAR HGB CONC 33.3 g/dL (33.0-37.0); RBC 3.77 Mil/uL (3.80-5.20); RED CELL DISTRIBUTION WIDTH 12.9 % (11.5-14.5)
[2018-02-02 09:28] LABS: BLOOD UREA NITROGEN 14 mg/dl (7-17); CALCIUM 9.3 mg/dL (8.4-10.2); GFR AFRICAN-AMERICAN > 60; GFR NON-AFRICAN AMERICAN > 60
--- NOTE | 2018-02-02 11:42 | CP.PCM.CON ---
History of Present Illness - History of Present Illness History of Present Illness: This 72-year-old female who suffers from chronic obstructive lumbar disease and underwent laminotomy and facetectomy with decompression of nerve roots L4-L5 and L5-S1 and L5-S1 pedicle screw fixation. She had received 2 units of packed red blood cells but has otherwise done very well postoperatively. She is presently seen in the telemetry unit seated in bedside chair and claims to feel improved from her preoperative status. She does suffer from chronic pulmonary disease but continues to practice her tobacco habit despite this. She also suffers from NIDDM, hypertension, hyperlipidemia and has been compliant with her medical regimen. Review of Systems - Constitutional Constitutional: Weakness - EENT Eyes: Decreased Night Vision - Respiratory Respiratory: Dyspnea on Exertion - Musculoskeletal Musculoskeletal: Back Pain, Radiating Pain into Limb, Tingling - Neurological Neurological: Radicular Pain Past Patient History - Infectious Disease Hx of Infectious Diseases: None - Tetanus Immunizations Tetanus Immunization: Unknown - Past Medical History & Family History Past Medical History?: Yes - Past Social History Smoking Status: Light Smoker < 10 Cigarettes Daily (formerly heavy daily tobacco use) Chewing Tobacco Use: No Cigar Use: No Alcohol: Social (quit drinking 5 yrs ago) Drugs: Denies - CARDIAC Hx Congestive Heart Failure: No Hx Hypercholesterolemia: Yes Hx Hypertension: Yes Hx Pacemaker: No - PULMONARY Hx Chronic Obstructive Pulmonary Disease (COPD): No Hx Emphysema: Yes - NEUROLOGICAL Hx Neurological Disorder: No Hx Paralysis: No - HEENT Hx Cataracts: Yes Hx Macular Degeneration: Yes - RENAL Hx Chronic Kidney Disease: No - ENDOCRINE/METABOLIC Hx Endocrine Disorders: Yes Hx Diabetes Mellitus Type 2: Yes - HEMATOLOGICAL/ONCOLOGICAL Hx Blood Transfusions: Yes Hx Blood Transfusion Reaction: No Hx Hepatitis C: Yes - INTEGUMENTARY Hx Dermatological Problems: No - MUSCULOSKELETAL/RHEUMATOLOGICAL Hx Back Pain: Yes Hx Falls: No Hx Herniated Disk: Yes Hx Osteoarthritis: Yes - GASTROINTESTINAL Hx Gastritis: Yes Hx Gastroesophageal Reflux: Yes - GENITOURINARY/GYNECOLOGICAL Hx Genitourinary Disorders: No - PSYCHIATRIC Hx Anxiety: Yes Hx Depression: Yes Hx Substance Use: No - SURGICAL HISTORY Hx Surgeries: Yes Hx Breast Biopsy: Yes (LUMPECTOMY R BREAST) Hx Cholecystectomy: Yes Hx Musculoskeletal Surgery: Yes (cervical disectomy 2008) Hx Orthopedic Surgery: Yes (right total knee replacement 2015) Other/Comment: GALLBLADDER SURGERY/CERVICAL SURGERY/EPIDURAL INJECTION - ANESTHESIA Hx Anesthesia: Yes Hx Anesthesia Reactions: No Hx Malignant Hyperthermia: No Has any member of the family had a problem w/ anesthesia?: No Meds Allergies/Adverse Reactions: Allergies Allergy/AdvReac Type Severity Reaction Status Date / Time No Known Allergies Allergy Verified 12/07/17 11:19 - Medications Medications: Current Medications Atorvastatin Calcium (Lipitor) 20 mg PO DAILY [facility] Last Admin: 02/02/18 08:40 Dose: 20 mg Dexamethasone (Decadron) 4 mg PO Q12 [facility] Docusate Sodium (Colace) 100 mg PO BID [facility] Last Admin: 02/02/18 08:35 Dose: 100 mg Furosemide (Lasix) 40 mg PO DAILY [facility] Last Admin: 02/02/18 08:39 Dose: 40 mg Sodium Chloride (Sodium Chloride 0.9%) 1,000 mls @ 100 mls/hr IV .Q10H [facility] Last Admin: 02/01/18 22:44 Dose: Not Given Sodium Chloride (Sodium Chloride 0.9%) 1,000 mls @ 75 mls/hr IV .[id number] [facility] Stop: 02/02/18 12:16 Last Admin: 02/02/18 06:22 Dose: 75 mls/hr Cefazolin Sodium 1 gm/ (Dextrose) 100 mls @ 100 mls/hr IVPB Q8 [facility] PRN Reason: Protocol Last Admin: 02/02/18 08:35 Dose: 100 mls/hr Insulin Human Lispro (Humalog) 0 units SC ACCU-CHECK [facility] PRN Reason: Protocol Last Admin: 02/02/18 07:21 Dose: 2 units Lisinopril (Zestril) 10 mg PO DAILY [facility] Last Admin: 02/02/18 08:41 Dose: 10 mg Morphine Sulfate (Morphine Lidding Machine Operator 1 Mg/Ml) 0 mg IV PRN PRN; Protocol PRN Reason: Pain, moderate (4-7) Multivitamins/Minerals (Therapeutic-M Tab) 1 tab PO DAILY [facility] Last Admin: 02/02/18 08:41 Dose: 1 tab Naloxone HCl (Narcan) 0.1 mg IVP Q2M PRN PRN Reason: Opiate reversal Pantoprazole Sodium (Protonix Ec Tab) 40 mg PO DAILY [facility] Last Admin: 02/02/18 08:40 Dose: 40 mg Paroxetine HCl (Paxil) 20 mg PO DAILY [facility] Last Admin: 02/02/18 08:40 Dose: 20 mg Propranolol HCl (Inderal La) 60 mg PO DAILY [facility] Last Admin: 02/02/18 09:07 Dose: 60 mg Sennosides (Senokot Tab) 17.2 mg PO HS [facility] Last Admin: 02/01/18 22:43 Dose: 17.2 mg Sitagliptin Phosphate (Januvia) 50 mg PO DAILY [facility] Last Admin: 02/02/18 09:07 Dose: 50 mg Physical Exam - Additional Findings Additional findings: Thin but well-developed female in no acute distress. Her speech is fluent and her memory is intact. No weakness of the upper extremities. Cranial nerves are intact. No palpable lymphadenopathy. Pharynx is pink and the mucous membranes are moist. No exudate. Nasal passages are patent bilaterally without any bleeding or exudate. Conjunctivae are pink and there is no scleral icterus. Pupils are equal and reactive. Neck is supple and trachea is midline. No neck vein distention or carotid bruit. No palpable thyromegaly. No dullness on chest percussion. Hemidiaphragms appear to be displaced caudally. Breath sounds are diminished bilaterally without rales or wheezes. No bronchial breathing or egophony. No rhonchi or rub. Heart sounds are distant. Rhythm is regular. No murmur. Abdomen soft and nontender with normal bowel sounds. No CVA tenderness. No dependent edema of the lower extremities. No cyanosis. Results - Vital Signs Recent Vital Signs: Last Vital Signs Temp 98.8 F 02/02/18 08:00 Pulse 83 02/02/18 09:07 Resp 20 02/02/18 08:00 BP 150/78 02/02/18 09:07 Pulse Ox 98 02/02/18 08:00 - Labs Result Diagrams: 02/02/18 09:02 02/02/18 09:02 Labs: Laboratory Results - last 24 hr 02/01/18 02/01/18 02/01/18 07:20 16:42 21:50 WBC RBC Hgb Hct MCV MCH MCHC RDW Plt Count Sodium Potassium Chloride Carbon Dioxide Anion Gap BUN Creatinine Est GFR ( Amer) Est GFR (Non-Af Amer) POC Glucose (mg/dL) 115 H 156 H Random Glucose Calcium Blood Type O NEGATIVE Antibody Screen Negative Crossmatch See Detail BBK History Checked Patient has bt 02/02/18 02/02/18 02/02/18 05:17 09:02 09:02 WBC 13.0 H D RBC 3.77 L Hgb 11.5 L Hct 34.4 MCV 91.2 MCH 30.4 MCHC 33.3 RDW 12.9 Plt Count 185 Sodium 139 Potassium 4.1 Chloride 104 Carbon Dioxide 24 Anion Gap 15 BUN 14 Creatinine 0.8 Est GFR ( Amer) > 60 Est GFR (Non-Af Amer) > 60 POC Glucose (mg/dL) 206 H Random Glucose 191 H Calcium 9.3 Blood Type Antibody Screen Crossmatch BBK History Checked 02/02/18 11:31 WBC RBC Hgb Hct MCV MCH MCHC RDW Plt Count Sodium Potassium Chloride Carbon Dioxide Anion Gap BUN Creatinine Est GFR ( Amer) Est GFR (Non-Af Amer) POC Glucose (mg/dL) 224 H Random Glucose Calcium Blood Type Antibody Screen Crossmatch BBK History Checked Assessment & Plan (1) Status post lumbar laminectomy Status: Acute Priority: High (2) COPD (chronic obstructive pulmonary disease) Status: Chronic Priority: High (3) DM II (diabetes mellitus, type II), controlled Status: Chronic Priority: Medium (4) HTN (hypertension) Status: Chronic Priority: Medium (5) Hyperlipidemia Status: Chronic Priority: Medium (6) Tobacco abuse Status: Chronic Priority: High - Assessment and Plan (Free Text) Plan: Continue all maintenance medications. Stressed importance of using incentive spirometry. Inhalation therapy as needed. Nicotine replacement. - Date & Time Date: 02/02/18 Time: 11:40
--- NOTE | 2018-02-02 13:10 | CP.PCM.PN ---
Subjective - Date & Time of Evaluation Date of Evaluation: 02/02/18 Time of Evaluation: 11:00 - Subjective Subjective: Patient seen and examined. Claimed she is pain free. Objective - Vital Signs/Intake and Output Vital Signs (last 24 hours): Temp Pulse Resp BP Pulse Ox 97.9 F 78 20 152/79 H 97 02/02/18 12:00 02/02/18 12:00 02/02/18 12:00 02/02/18 12:00 02/02/18 12:00 Intake and Output: 02/02/18 02/02/18 06:59 18:59 Intake Total 1045 220 Output Total 685 Balance 360 220 - Medications Medications: Current Medications Atorvastatin Calcium (Lipitor) 20 mg PO DAILY [facility] Last Admin: 02/02/18 08:40 Dose: 20 mg Dexamethasone (Decadron) 4 mg PO Q12 [facility] Docusate Sodium (Colace) 100 mg PO BID [facility] Last Admin: 02/02/18 08:35 Dose: 100 mg Furosemide (Lasix) 40 mg PO DAILY [facility] Last Admin: 02/02/18 08:39 Dose: 40 mg Gabapentin (Neurontin) 400 mg PO HS [facility] Sodium Chloride (Sodium Chloride 0.9%) 1,000 mls @ 100 mls/hr IV .Q10H [facility] Last Admin: 02/01/18 22:44 Dose: Not Given Cefazolin Sodium 1 gm/ (Dextrose) 100 mls @ 100 mls/hr IVPB Q8 [facility] PRN Reason: Protocol Last Admin: 02/02/18 08:35 Dose: 100 mls/hr Insulin Human Lispro (Humalog) 0 units SC ACCU-CHECK [facility] PRN Reason: Protocol Last Admin: 02/02/18 12:11 Dose: 2 units Lisinopril (Zestril) 10 mg PO DAILY [facility] Last Admin: 02/02/18 08:41 Dose: 10 mg Morphine Sulfate (Morphine Deoiling Machine Operator 1 Mg/Ml) 0 mg IV PRN PRN; Protocol PRN Reason: Pain, moderate (4-7) Multivitamins/Minerals (Therapeutic-M Tab) 1 tab PO DAILY [facility] Last Admin: 02/02/18 08:41 Dose: 1 tab Naloxone HCl (Narcan) 0.1 mg IVP Q2M PRN PRN Reason: Opiate reversal Oxycodone/Acetaminophen (Percocet 5/325 Mg Tab) 1 tab PO Q4 PRN PRN Reason: Pain, moderate (4-7) Stop: 02/05/18 12:51 Pantoprazole Sodium (Protonix Ec Tab) 40 mg PO DAILY [facility] Last Admin: 02/02/18 08:40 Dose: 40 mg Paroxetine HCl (Paxil) 20 mg PO DAILY [facility] Last Admin: 02/02/18 08:40 Dose: 20 mg Propranolol HCl (Inderal La) 60 mg PO DAILY [facility] Last Admin: 02/02/18 09:07 Dose: 60 mg Sennosides (Senokot Tab) 17.2 mg PO HS [facility] Last Admin: 02/01/18 22:43 Dose: 17.2 mg Sitagliptin Phosphate (Januvia) 50 mg PO DAILY [facility] Last Admin: 02/02/18 09:07 Dose: 50 mg - Labs Labs: 02/02/18 09:02 02/02/18 09:02 - Constitutional Appears: No Acute Distress - Head Exam Head Exam: ATRAUMATIC - Eye Exam Eye Exam: absent: Scleral icterus - ENT Exam ENT Exam: Mucous Membranes Moist - Neck Exam Neck Exam: absent: Meningismus - Respiratory Exam Respiratory Exam: absent: Rales, Rhonchi, Wheezes, Respiratory Distress - Cardiovascular Exam Cardiovascular Exam: REGULAR RHYTHM, +S1, +S2 - GI/Abdominal Exam GI & Abdominal Exam: Soft. absent: Tenderness - Rectal Exam Rectal Exam: Deferred - Extremities Exam Extremities Exam: absent: Pedal Edema - Neurological Exam Neurological Exam: Alert, Oriented x3 - Psychiatric Exam Psychiatric exam: Normal Affect - Skin Skin Exam: Dry, Intact Assessment and Plan - Assessment and Plan (Free Text) Assessment: 72 yo female with history of DM2, HTN, HLD and Chronic Low Back Pain had hemilaminectomy last year relieving her from pain only to come back after 3 months in July,. The pain progressively got worse and was associated with radiculopathy on the right leg. With failed conservative management and previous surgical intervention, patient had Decompressive right L5-S1 laminectomy and spinal fusion of L4-S1 today. 1. Low Back Pain s/p Laminectomy and Spinal Fusion, POD # 1 patient pain free will DC [employer] pump and put on Percocet 1 tab PO q 4hrs prn for pain Dr Cristobal on neurosurgical consult Fabian Medellin drain has more than 100cc of blood continue IV Cefazolin Decadron tapered to 4mg PO q 12hrs 2. DM2 BS elevated probably secondary to steroid continue Januvia 50mg PO daily 3. HTN BP stable continue Lisinopril and Propranolol 4. HLD Lipitor 40mg PO daily 5. Restless Leg Syndrome Neurontin 400mg PO HS 6. DVT prophylaxis venodyne boots while in bed
[2018-02-02] MEDS ORDERED: Phytonadione 10 mg/ml Inj (Adult) SC ONE (14:44)
[2018-02-02] MEDS: Oxycodone/Acetaminophen 5/325 mg Tab PO PRN (17:17)
--- NOTE | 2018-02-02 18:00 | CP.PCM.CON ---
History of Present Illness - History of Present Illness History of Present Illness: This 72-year-old female who suffers from chronic obstructive lumbar disease and underwent laminotomy and facetectomy with decompression of nerve roots L4-L5 and L5-S1 and L5-S1 pedicle screw fixation. She had received 2 units of packed red blood cells but has otherwise done very well postoperatively. She does suffer from chronic pulmonary disease but continues to smoke . She also suffers from NIDDM, hypertension, hyperlipidemia Consult called for Bradycardia on EKG No change from prior EKG's HR on monitor 50 -80 Her HR increases as she moves around Bradycardia is most likely secondary to Inderal Past Patient History - Infectious Disease Hx of Infectious Diseases: None - Tetanus Immunizations Tetanus Immunization: Unknown - Past Medical History & Family History Past Medical History?: Yes - Past Social History Smoking Status: Light Smoker < 10 Cigarettes Daily (formerly heavy daily tobacco use) Chewing Tobacco Use: No Cigar Use: No Alcohol: Social (quit drinking 5 yrs ago) Drugs: Denies - CARDIAC Hx Congestive Heart Failure: No Hx Hypercholesterolemia: Yes Hx Hypertension: Yes Hx Pacemaker: No - PULMONARY Hx Chronic Obstructive Pulmonary Disease (COPD): No Hx Emphysema: Yes - NEUROLOGICAL Hx Neurological Disorder: No Hx Paralysis: No - HEENT Hx Cataracts: Yes Hx Macular Degeneration: Yes - RENAL Hx Chronic Kidney Disease: No - ENDOCRINE/METABOLIC Hx Endocrine Disorders: Yes Hx Diabetes Mellitus Type 2: Yes - HEMATOLOGICAL/ONCOLOGICAL Hx Blood Transfusions: Yes Hx Blood Transfusion Reaction: No Hx Hepatitis C: Yes - INTEGUMENTARY Hx Dermatological Problems: No - MUSCULOSKELETAL/RHEUMATOLOGICAL Hx Back Pain: Yes Hx Falls: No Hx Herniated Disk: Yes Hx Osteoarthritis: Yes - GASTROINTESTINAL Hx Gastritis: Yes Hx Gastroesophageal Reflux: Yes - GENITOURINARY/GYNECOLOGICAL Hx Genitourinary Disorders: No - PSYCHIATRIC Hx Anxiety: Yes Hx Depression: Yes Hx Substance Use: No - SURGICAL HISTORY Hx Surgeries: Yes Hx Breast Biopsy: Yes (LUMPECTOMY R BREAST) Hx Cholecystectomy: Yes Hx Musculoskeletal Surgery: Yes (cervical disectomy 2008) Hx Orthopedic Surgery: Yes (right total knee replacement 2015) Other/Comment: GALLBLADDER SURGERY/CERVICAL SURGERY/EPIDURAL INJECTION - ANESTHESIA Hx Anesthesia: Yes Hx Anesthesia Reactions: No Hx Malignant Hyperthermia: No Has any member of the family had a problem w/ anesthesia?: No Meds Allergies/Adverse Reactions: Allergies Allergy/AdvReac Type Severity Reaction Status Date / Time No Known Allergies Allergy Verified 12/07/17 11:19 - Medications Medications: Current Medications Atorvastatin Calcium (Lipitor) 20 mg PO DAILY [facility] Last Admin: 02/02/18 08:40 Dose: 20 mg Dexamethasone (Decadron) 4 mg PO Q12 [facility] Docusate Sodium (Colace) 100 mg PO BID [facility] Last Admin: 02/02/18 17:09 Dose: 100 mg Furosemide (Lasix) 40 mg PO DAILY [facility] Last Admin: 02/02/18 08:39 Dose: 40 mg Gabapentin (Neurontin) 400 mg PO [facility] Sodium Chloride (Sodium Chloride 0.9%) 1,000 mls @ 100 mls/hr IV .Q10H [facility] Last Admin: 02/01/18 22:44 Dose: Not Given Cefazolin Sodium 1 gm/ (Dextrose) 100 mls @ 100 mls/hr IVPB Q8 [facility] PRN Reason: Protocol Last Admin: 02/02/18 16:35 Dose: 100 mls/hr Insulin Human Lispro (Humalog) 0 units SC ACCU-CHECK [facility] PRN Reason: Protocol Last Admin: 02/02/18 16:36 Dose: 1 units Lisinopril (Zestril) 10 mg PO DAILY [facility] Last Admin: 02/02/18 08:41 Dose: 10 mg Morphine Sulfate (Morphine [place] 1 Mg/Ml) 0 mg IV PRN PRN; Protocol PRN Reason: Pain, moderate (4-7) Multivitamins/Minerals (Therapeutic-M Tab) 1 tab PO DAILY [facility] Last Admin: 02/02/18 08:41 Dose: 1 tab Naloxone HCl (Narcan) 0.1 mg IVP Q2M PRN PRN Reason: Opiate reversal Oxycodone/Acetaminophen (Percocet 5/325 Mg Tab) 1 tab PO Q4 PRN PRN Reason: Pain, moderate (4-7) Stop: 02/05/18 12:51 Last Admin: 02/02/18 17:17 Dose: 1 tab Pantoprazole Sodium (Protonix Ec Tab) 40 mg PO DAILY [facility] Last Admin: 02/02/18 08:40 Dose: 40 mg Paroxetine HCl (Paxil) 20 mg PO DAILY [facility] Last Admin: 02/02/18 08:40 Dose: 20 mg Propranolol HCl (Inderal La) 60 mg PO DAILY [facility] Last Admin: 02/02/18 09:07 Dose: 60 mg Sennosides (Senokot Tab) 17.2 mg PO HS [facility] Last Admin: 02/01/18 22:43 Dose: 17.2 mg Sitagliptin Phosphate (Januvia) 50 mg PO DAILY [facility] Last Admin: 02/02/18 09:07 Dose: 50 mg Physical Exam - Constitutional Appears: Well - ENT Exam ENT Exam: Normal Exam - Neck Exam Neck exam: Positive for: Normal Inspection - Respiratory Exam Respiratory Exam: NORMAL BREATHING PATTERN - Cardiovascular Exam Cardiovascular Exam: REGULAR RHYTHM Results - Vital Signs Recent Vital Signs: Last Vital Signs Temp 98.3 F 02/02/18 16:00 Pulse 59 L 02/02/18 16:00 Resp 18 02/02/18 16:00 BP 128/50 L 02/02/18 16:00 Pulse Ox 94 L 02/02/18 16:00 - Labs Result Diagrams: 02/03/18 05:00 02/02/18 09:02 Labs: Laboratory Results - last 24 hr 02/01/18 02/02/18 02/02/18 21:50 05:17 09:02 WBC 13.0 H D RBC 3.77 L Hgb 11.5 L Hct 34.4 MCV 91.2 MCH 30.4 MCHC 33.3 RDW 12.9 Plt Count 185 Sodium Potassium Chloride Carbon Dioxide Anion Gap BUN Creatinine Est GFR ( Amer) Est GFR (Non-Af Amer) POC Glucose (mg/dL) 156 H 206 H Random Glucose Calcium 02/02/18 02/02/18 09:02 11:31 WBC RBC Hgb Hct MCV MCH MCHC RDW Plt Count Sodium 139 Potassium 4.1 Chloride 104 Carbon Dioxide 24 Anion Gap 15 BUN 14 Creatinine 0.8 Est GFR ( Amer) > 60 Est GFR (Non-Af Amer) > 60 POC Glucose (mg/dL) 224 H Random Glucose 191 H Calcium 9.3 Assessment & Plan (1) Sinus bradycardia on ECG Assessment and Plan: Bradycardia is most likely secondary to the fact that the pt is on a beta marleny .. Inderal Status: Acute (2) COPD (chronic obstructive pulmonary disease) Status: Chronic Priority: High (3) HTN (hypertension) Status: Chronic Priority: Medium (4) Hyperlipidemia Status: Chronic Priority: Medium
--- NOTE | 2018-02-02 21:27 | CP.PCM.CON ---
History of Present Illness - History of Present Illness History of Present Illness: 72 year old female with a history of HTN, DM, HL, chronic back pain s/p decompressive laminectomy and spinal fusion, noted to have increased bleeding intraoperatively and diminished hemostasis. She is s/p 2U PRBC transfusion. She has 2 DILAN drains with combined drainage of 120ml blood today. The patient notes she has required PRBC transfusions with past surgeries. She denies easy bruising. Pt reports to stopping aspirin 2 weeks prior to surgery. Past medical history: HTN, DM, HL Past surgical history: laminectomy, spinal fusion Family history: Denies hematologic and oncologic problems Social history: 1/2ppd x 50 years, former alcohol, and denies illicit drug use. Allergies: NKA Review of systems: All remaining review of systems including HEENT, cardiovacular, respiratory, gastrointestinal, genitourinary, musculoskeletal, dermatologic, neurologic, and psychiatric are negative unless mentioned in the HPI. Past Patient History - Infectious Disease Hx of Infectious Diseases: None - Tetanus Immunizations Tetanus Immunization: Unknown - Past Medical History & Family History Past Medical History?: Yes - Past Social History Smoking Status: Light Smoker < 10 Cigarettes Daily (formerly heavy daily tobacco use) Chewing Tobacco Use: No Cigar Use: No Alcohol: Social (quit drinking 5 yrs ago) Drugs: Denies - CARDIAC Hx Congestive Heart Failure: No Hx Hypercholesterolemia: Yes Hx Hypertension: Yes Hx Pacemaker: No - PULMONARY Hx Chronic Obstructive Pulmonary Disease (COPD): No Hx Emphysema: Yes - NEUROLOGICAL Hx Neurological Disorder: No Hx Paralysis: No - HEENT Hx Cataracts: Yes Hx Macular Degeneration: Yes - RENAL Hx Chronic Kidney Disease: No - ENDOCRINE/METABOLIC Hx Endocrine Disorders: Yes Hx Diabetes Mellitus Type 2: Yes - HEMATOLOGICAL/ONCOLOGICAL Hx Blood Transfusions: Yes Hx Blood Transfusion Reaction: No Hx Hepatitis C: Yes - INTEGUMENTARY Hx Dermatological Problems: No - MUSCULOSKELETAL/RHEUMATOLOGICAL Hx Back Pain: Yes Hx Falls: No Hx Herniated Disk: Yes Hx Osteoarthritis: Yes - GASTROINTESTINAL Hx Gastritis: Yes Hx Gastroesophageal Reflux: Yes - GENITOURINARY/GYNECOLOGICAL Hx Genitourinary Disorders: No - PSYCHIATRIC Hx Anxiety: Yes Hx Depression: Yes Hx Substance Use: No - SURGICAL HISTORY Hx Surgeries: Yes Hx Breast Biopsy: Yes (LUMPECTOMY R BREAST) Hx Cholecystectomy: Yes Hx Musculoskeletal Surgery: Yes (cervical disectomy 2008) Hx Orthopedic Surgery: Yes (right total knee replacement 2016) Other/Comment: GALLBLADDER SURGERY/CERVICAL SURGERY/EPIDURAL INJECTION - ANESTHESIA Hx Anesthesia: Yes Hx Anesthesia Reactions: No Hx Malignant Hyperthermia: No Has any member of the family had a problem w/ anesthesia?: No Meds Allergies/Adverse Reactions: Allergies Allergy/AdvReac Type Severity Reaction Status Date / Time No Known Allergies Allergy Verified 12/07/17 11:19 - Medications Medications: Current Medications Atorvastatin Calcium (Lipitor) 20 mg PO DAILY [facility] Last Admin: 02/02/18 08:40 Dose: 20 mg Dexamethasone (Decadron) 4 mg PO Q12 [facility] Last Admin: 02/02/18 21:06 Dose: 4 mg Docusate Sodium (Colace) 100 mg PO BID [facility] Last Admin: 02/02/18 17:09 Dose: 100 mg Furosemide (Lasix) 40 mg PO DAILY [facility] Last Admin: 02/02/18 08:39 Dose: 40 mg Gabapentin (Neurontin) 400 mg PO HS [facility] Last Admin: 02/02/18 21:07 Dose: 400 mg Sodium Chloride (Sodium Chloride 0.9%) 1,000 mls @ 100 mls/hr IV .Q10H [facility] Last Admin: 02/01/18 22:44 Dose: Not Given Cefazolin Sodium 1 gm/ (Dextrose) 100 mls @ 100 mls/hr IVPB Q8 [facility] PRN Reason: Protocol Last Admin: 02/02/18 16:35 Dose: 100 mls/hr Insulin Human Lispro (Humalog) 0 units SC ACCU-CHECK [facility] PRN Reason: Protocol Last Admin: 02/02/18 16:36 Dose: 1 units Lisinopril (Zestril) 10 mg PO DAILY [facility] Last Admin: 02/02/18 08:41 Dose: 10 mg Morphine Sulfate (Morphine Carpet Installer 1 Mg/Ml) 0 mg IV PRN PRN; Protocol PRN Reason: Pain, moderate (4-7) Multivitamins/Minerals (Therapeutic-M Tab) 1 tab PO DAILY [facility] Last Admin: 02/02/18 08:41 Dose: 1 tab Naloxone HCl (Narcan) 0.1 mg IVP Q2M PRN PRN Reason: Opiate reversal Oxycodone/Acetaminophen (Percocet 5/325 Mg Tab) 1 tab PO Q4 PRN PRN Reason: Pain, moderate (4-7) Stop: 02/05/18 12:51 Last Admin: 02/02/18 17:17 Dose: 1 tab Pantoprazole Sodium (Protonix Ec Tab) 40 mg PO DAILY [facility] Last Admin: 02/02/18 08:40 Dose: 40 mg Paroxetine HCl (Paxil) 20 mg PO DAILY [facility] Last Admin: 02/02/18 08:40 Dose: 20 mg Propranolol HCl (Inderal La) 60 mg PO DAILY [facility] Last Admin: 02/02/18 09:07 Dose: 60 mg Sennosides (Senokot Tab) 17.2 mg PO HS [facility] Last Admin: 02/02/18 21:06 Dose: 17.2 mg Sitagliptin Phosphate (Januvia) 50 mg PO DAILY [facility] Last Admin: 02/02/18 09:07 Dose: 50 mg Physical Exam - Head Exam Head Exam: ATRAUMATIC - Eye Exam Eye Exam: Normal appearance - ENT Exam ENT Exam: Mucous Membranes Dry - Respiratory Exam Respiratory Exam: NORMAL BREATHING PATTERN - Cardiovascular Exam Cardiovascular Exam: +S1, +S2 - GI/Abdominal Exam GI & Abdominal Exam: Normal Bowel Sounds - Extremities Exam Extremities exam: Positive for: normal inspection - Neurological Exam Neurological exam: Oriented x3 - Psychiatric Exam Psychiatric exam: Normal Affect, Normal Mood - Skin Skin Exam: Warm Results - Vital Signs Recent Vital Signs: Last Vital Signs Temp 97.9 F 02/02/18 20:00 Pulse 88 02/02/18 20:00 Resp 18 02/02/18 20:00 BP 131/83 02/02/18 20:00 Pulse Ox 96 02/02/18 20:00 - Labs Result Diagrams: 02/02/18 09:02 02/02/18 09:02 Labs: Laboratory Results - last 24 hr 02/01/18 02/02/18 02/02/18 21:50 05:17 09:02 WBC 13.0 H D RBC 3.77 L Hgb 11.5 L Hct 34.4 MCV 91.2 MCH 30.4 MCHC 33.3 RDW 12.9 Plt Count 185 Sodium Potassium Chloride Carbon Dioxide Anion Gap BUN Creatinine Est GFR ( Amer) Est GFR (Non-Af Amer) POC Glucose (mg/dL) 156 H 206 H Random Glucose Calcium 02/02/18 02/02/18 09:02 11:31 WBC RBC Hgb Hct MCV MCH MCHC RDW Plt Count Sodium 139 Potassium 4.1 Chloride 104 Carbon Dioxide 24 Anion Gap 15 BUN 14 Creatinine 0.8 Est GFR ( Amer) > 60 Est GFR (Non-Af Amer) > 60 POC Glucose (mg/dL) 224 H Random Glucose 191 H Calcium 9.3 Assessment & Plan (1) Bleeding Assessment and Plan: will give a dose of Vit K IV and desmopressin IV in AM check PT/PTT and fibrinogen Status: Acute (2) Anemia Assessment and Plan: anemia of blood loss s/p PRBC transfusion Status: Acute (3) Leukocytosis Assessment and Plan: likely reactive on antibiotics Thank you for this interesting consult. Status: Acute
[2018-02-03] MEDS: Insulin Lispro (humaLOG) 100 Units/ml Inj SC SCH ×4 (06:24→22:09)
[2018-02-03 07:21] LABS: INR 1.1 (0.9-1.2); PARTIAL THROMBOPLASTIN TIME 25.3 Seconds (25.6-37.1); PROTHROMBIN TIME 12.4 Seconds (9.8-13.1)
[2018-02-03 07:31] LABS: BASO % 0.1 % (0.0-2.0); LYMPH # 1.2 K/uL (1.0-4.3); LYMPH % 6.3 % (20.0-40.0); MEAN CELL VOLUME 89.9 fl (81.0-99.0); MEAN CORPUSCULAR HEMOGLOBIN 31.6 pg (27.0-31.0); MEAN CORPUSCULAR HGB CONC 35.2 g/dL (33.0-37.0); MEAN PLATELET VOLUME 8.3 fl (7.2-11.7); MONO % 5.2 % (0.0-10.0); NEUT # 16.9 K/uL (1.8-7.0); NEUT % 88.4 % (50.0-75.0); PLATELET COUNT 212 K/uL (130-400); RBC 3.49 Mil/uL (3.80-5.20); RED CELL DISTRIBUTION WIDTH 12.8 % (11.5-14.5); WHITE BLOOD COUNT 19.2 K/uL (4.8-10.8)
--- NOTE | 2018-02-03 07:59 | CP.PCM.PN ---
Subjective - Date & Time of Evaluation Date of Evaluation: 02/03/18 Time of Evaluation: 07:59 - Subjective Subjective: Patient sleeping. Complains of back pain. Denies CP/SOB/dizziness. Denies numbness/tingling. Objective - Vital Signs/Intake and Output Vital Signs (last 24 hours): Temp Pulse Resp BP Pulse Ox 98 F 76 18 122/74 98 02/03/18 05:00 02/03/18 05:00 02/03/18 05:00 02/03/18 05:00 02/03/18 04:59 Intake and Output: 02/03/18 02/03/18 06:59 18:59 Intake Total 2020 Output Total 135 Balance 1885 - Medications Medications: Current Medications Atorvastatin Calcium (Lipitor) 20 mg PO DAILY [facility] Last Admin: 02/02/18 08:40 Dose: 20 mg Dexamethasone (Decadron) 4 mg PO Q12 [facility] Last Admin: 02/02/18 21:06 Dose: 4 mg Docusate Sodium (Colace) 100 mg PO BID [facility] Last Admin: 02/02/18 17:09 Dose: 100 mg Furosemide (Lasix) 40 mg PO DAILY [facility] Last Admin: 02/02/18 08:39 Dose: 40 mg Gabapentin (Neurontin) 400 mg PO HS [facility] Last Admin: 02/02/18 21:07 Dose: 400 mg Cefazolin Sodium 1 gm/ (Dextrose) 100 mls @ 100 mls/hr IVPB Q8 [facility] PRN Reason: Protocol Last Admin: 02/03/18 00:06 Dose: 100 mls/hr Insulin Human Lispro (Humalog) 0 units SC ACCU-CHECK [facility] PRN Reason: Protocol Last Admin: 02/03/18 06:24 Dose: 2 units Lisinopril (Zestril) 10 mg PO DAILY [facility] Last Admin: 02/02/18 08:41 Dose: 10 mg Morphine Sulfate (Morphine) 2 mg IVP Q4 PRN PRN Reason: Pain, severe (8-10) Multivitamins/Minerals (Therapeutic-M Tab) 1 tab PO DAILY [facility] Last Admin: 02/02/18 08:41 Dose: 1 tab Naloxone HCl (Narcan) 0.1 mg IVP Q2M PRN PRN Reason: Opiate reversal Oxycodone/Acetaminophen (Percocet 5/325 Mg Tab) 1 tab PO Q4 PRN PRN Reason: Pain, moderate (4-7) Stop: 02/05/18 12:51 Last Admin: 02/02/18 17:17 Dose: 1 tab Pantoprazole Sodium (Protonix Ec Tab) 40 mg PO DAILY [facility] Last Admin: 02/02/18 08:40 Dose: 40 mg Paroxetine HCl (Paxil) 20 mg PO DAILY [facility] Last Admin: 02/02/18 08:40 Dose: 20 mg Propranolol HCl (Inderal La) 60 mg PO DAILY [facility] Last Admin: 02/02/18 09:07 Dose: 60 mg Sennosides (Senokot Tab) 17.2 mg PO HS [facility] Last Admin: 02/02/18 21:06 Dose: 17.2 mg Sitagliptin Phosphate (Januvia) 50 mg PO DAILY [facility] Last Admin: 02/02/18 09:07 Dose: 50 mg - Labs Labs: 02/03/18 05:00 02/02/18 09:02 PT 12.4 Seconds (9.8-13.1) 02/03/18 05:00 INR 1.1 (0.9-1.2) 02/03/18 05:00 APTT 25.3 Seconds (25.6-37.1) L 02/03/18 05:00 - Back Exam Additional comments: drains 65 and 80cc Dressing intact 5/5 BLE great toe ext/DF/PF/knee flex/ext sensation intact BLE L2-s1 calves soft NT neg homans +SCDs Assessment and Plan (1) Lumbar spondylosis Assessment & Plan: POD#2 s/p L4-S1 fusion prn meds heme consult appreciated -PT/OT WBAT -will leave drains in, continue to monitor output, continue postop abx while drains in -case and plan d/w Dr. Cristobal agrees with above Status: Acute (2) Spondylolisthesis, lumbar region Status: Acute (3) Spinal instabilities of lumbar region Status: Acute
[2018-02-03 08:59] LABS: BANDS 2 % (0-2); LYMPHOCYTE 4 % (20-50); MONOCYTE 3 % (0-10); NEUTROPHIL 90 % (42-75); PLATELET ESTIMATE NORMAL (NORMAL); REACTIVE LYMPHOCYTES 1 % (0-0); TOTAL CELLS COUNTED 100
[2018-02-03 09:00] LABS: ANISOCYTOSIS SLIGHT; GIANT PLATELETS PRESENT; LARGE PLATELETS PRESENT; POIKILOCYTOSIS SLIGHT
[2018-02-03 09:01] LABS: OVALOCYTES SLIGHT
[2018-02-03] MEDS: Propranolol 60 mg ER Cap PO SCH (09:45)
[2018-02-03] MEDS: Multivitamin With Minerals Tab PO SCH (09:46)
[2018-02-03] MEDS: Pantoprazole 40 mg EC Tab PO SCH (09:46)
[2018-02-03] MEDS: Oxycodone/Acetaminophen 5/325 mg Tab PO PRN ×3 (09:51→22:14)
[2018-02-03] MEDS ORDERED: Desmopressin 4 mcg/ml Inj (10 ml) IV ONE (10:00)
--- NOTE | 2018-02-03 10:35 | CARD ---
APPROVED REPORT EKG Measurement Heart [id number] <Conclusion> Sinus bradycardia Left axis deviation Left bundle branch block Abnormal ECG
--- NOTE | 2018-02-03 10:37 | CARD ---
APPROVED REPORT EKG Measurement Heart [id number] [id number] [id number] <Conclusion> Normal sinus rhythm Left bundle branch block Abnormal ECG
--- NOTE | 2018-02-03 12:00 | CP.PCM.PN ---
Subjective - Date & Time of Evaluation Date of Evaluation: 02/03/18 Time of Evaluation: 11:00 - Subjective Subjective: Patient seen and examined. Claimed she has no pain but only when she moved in a certain way and pain was bearable with out pain medication. Objective - Vital Signs/Intake and Output Vital Signs (last 24 hours): Temp Pulse Resp BP Pulse Ox 97.6 F 65 20 132/75 97 02/03/18 08:00 02/03/18 09:46 02/03/18 08:00 02/03/18 09:46 02/03/18 08:00 Intake and Output: 02/03/18 02/03/18 06:59 18:59 Intake Total 2020 Output Total 135 Balance 1885 - Medications Medications: Current Medications Atorvastatin Calcium (Lipitor) 20 mg PO DAILY [facility] Last Admin: 02/03/18 09:44 Dose: 20 mg Dexamethasone (Decadron) 2 mg PO Q8 [facility] Docusate Sodium (Colace) 100 mg PO BID [facility] Last Admin: 02/03/18 09:46 Dose: 100 mg Furosemide (Lasix) 40 mg PO DAILY [facility] Last Admin: 02/03/18 09:46 Dose: 40 mg Gabapentin (Neurontin) 400 mg PO HS [facility] Last Admin: 02/02/18 21:07 Dose: 400 mg Cefazolin Sodium 1 gm/ Sodium (Chloride) 100 mls @ 100 mls/hr IVPB Q8 [facility] PRN Reason: Protocol Insulin Human Lispro (Humalog) 0 units SC ACCU-CHECK [facility] PRN Reason: Protocol Last Admin: 02/03/18 06:24 Dose: 2 units Lisinopril (Zestril) 10 mg PO DAILY [facility] Last Admin: 02/03/18 09:46 Dose: 10 mg Morphine Sulfate (Morphine) 2 mg IVP Q4 PRN PRN Reason: Pain, severe (8-10) Multivitamins/Minerals (Therapeutic-M Tab) 1 tab PO DAILY [facility] Last Admin: 02/03/18 09:46 Dose: 1 tab Naloxone HCl (Narcan) 0.1 mg IVP Q2M PRN PRN Reason: Opiate reversal Oxycodone/Acetaminophen (Percocet 5/325 Mg Tab) 1 tab PO Q4 PRN PRN Reason: Pain, moderate (4-7) Stop: 02/05/18 12:51 Last Admin: 02/03/18 09:51 Dose: 1 tab Pantoprazole Sodium (Protonix Ec Tab) 40 mg PO DAILY [facility] Last Admin: 02/03/18 09:46 Dose: 40 mg Paroxetine HCl (Paxil) 20 mg PO DAILY [facility] Last Admin: 02/03/18 09:44 Dose: 20 mg Propranolol HCl (Inderal La) 60 mg PO DAILY [facility] Last Admin: 02/03/18 09:45 Dose: 60 mg Sennosides (Senokot Tab) 17.2 mg PO HS [facility] Last Admin: 02/02/18 21:06 Dose: 17.2 mg Sitagliptin Phosphate (Januvia) 50 mg PO DAILY [facility] Last Admin: 02/03/18 09:46 Dose: 50 mg - Labs Labs: 02/03/18 05:00 02/02/18 09:02 PT 12.4 Seconds (9.8-13.1) 02/03/18 05:00 INR 1.1 (0.9-1.2) 02/03/18 05:00 APTT 25.3 Seconds (25.6-37.1) L 02/03/18 05:00 - Constitutional Appears: No Acute Distress - Head Exam Head Exam: ATRAUMATIC - Eye Exam Eye Exam: absent: Scleral icterus - ENT Exam ENT Exam: Mucous Membranes Moist - Neck Exam Neck Exam: absent: Meningismus - Respiratory Exam Respiratory Exam: absent: Rales, Rhonchi, Wheezes, Respiratory Distress - Cardiovascular Exam Cardiovascular Exam: REGULAR RHYTHM, +S1, +S2 - GI/Abdominal Exam GI & Abdominal Exam: Soft. absent: Tenderness - Rectal Exam Rectal Exam: Deferred - Extremities Exam Extremities Exam: absent: Calf Tenderness, Pedal Edema - Neurological Exam Neurological Exam: Alert, Oriented x3 - Psychiatric Exam Psychiatric exam: Normal Affect - Skin Skin Exam: Dry, Intact Assessment and Plan - Assessment and Plan (Free Text) Assessment: 72 yo female with history of DM2, HTN, HLD and Chronic Low Back Pain had hemilaminectomy last year relieving her of the pain but only for 3 months. The pain recurred in Jul, 2017. It progressively got worse from then and was associated with radiculopathy of the right leg. With failed conservative management and previous surgical intervention, patient had Decompressive right L5-S1 laminectomy and spinal fusion of L4-S1 on February 01, 2018 . 1. Low Back Pain s/p Laminectomy and Spinal Fusion, POD # 2 patient pain free without pain medication Dr Cristobal on neurosurgical consult Fabian Medellin drains has 65cc on the right and 70cc on the left continue IV Cefazolin Decadron tapered to 2mg PO q 8hrs 2. DM2 BS still elevated but coming down hyperglycemia secondary to steroid continue Januvia 50mg PO daily 3. HTN BP stable continue Lisinopril and Propranolol 4. HLD Lipitor 40mg PO daily 5. Restless Leg Syndrome Neurontin 400mg PO HS 6. Leukocytosis secondary to steroid continue Cefazolin 7. DVT prophylaxis venodyne boots while in bed
[2018-02-03] MEDS: ceFAZolin 1 GM in Sodium Chloride 0.9% 100 ML IVPB SCH (17:52)
[2018-02-04] MEDS: ceFAZolin 1 GM in Sodium Chloride 0.9% 100 ML IVPB SCH ×3 (01:44→17:44)
[2018-02-04] MEDS: Insulin Lispro (humaLOG) 100 Units/ml Inj SC SCH ×4 (06:41→22:25)
[2018-02-04] MEDS: Propranolol 60 mg ER Cap PO SCH (08:50)
[2018-02-04] MEDS: Pantoprazole 40 mg EC Tab PO SCH (08:51)
[2018-02-04] MEDS: Multivitamin With Minerals Tab PO SCH (08:51)
[2018-02-04] MEDS: Oxycodone/Acetaminophen 5/325 mg Tab PO PRN ×3 (08:53→20:20)
--- NOTE | 2018-02-04 08:55 | CP.PCM.PN ---
Subjective - Date & Time of Evaluation Date of Evaluation: 02/03/18 Time of Evaluation: 09:00 - Subjective Subjective: Seen on morning rounds and telemetry. The patient is lying in bed and appears comfortable. Serosanguineous fluid noted in drain. Claims that her pain is markedly reduced. Offers no complaint of shortness of breath or cough. Instructed on need to use her incentive spirometer while hospitalized. Breath sounds are diminished but otherwise unremarkable. Objective - Vital Signs/Intake and Output Vital Signs (last 24 hours): Temp Pulse Resp BP Pulse Ox 98.0 F 68 18 132/64 99 02/04/18 08:17 02/04/18 08:17 02/04/18 08:17 02/04/18 08:17 02/04/18 08:17 Intake and Output: 02/03/18 02/04/18 23:59 11:59 Intake Total 700 940 Output Total 55 70 Balance 645 870 - Medications Medications: Current Medications Atorvastatin Calcium (Lipitor) 20 mg PO DAILY [facility] Last Admin: 02/03/18 09:44 Dose: 20 mg Dexamethasone (Decadron) 2 mg PO Q8 [facility] Last Admin: 02/04/18 01:52 Dose: 2 mg Docusate Sodium (Colace) 100 mg PO BID [facility] Last Admin: 02/03/18 17:53 Dose: 100 mg Furosemide (Lasix) 40 mg PO DAILY [facility] Last Admin: 02/03/18 09:46 Dose: 40 mg Gabapentin (Neurontin) 400 mg PO HS [facility] Last Admin: 02/03/18 21:08 Dose: 400 mg Cefazolin Sodium 1 gm/ Sodium (Chloride) 100 mls @ 100 mls/hr IVPB Q8 [facility] PRN Reason: Protocol Last Admin: 02/04/18 01:44 Dose: 100 mls/hr Insulin Human Lispro (Humalog) 0 units SC ACCU-CHECK [facility] PRN Reason: Protocol Last Admin: 02/04/18 06:41 Dose: 1 units Lisinopril (Zestril) 10 mg PO DAILY [facility] Last Admin: 02/03/18 09:46 Dose: 10 mg Morphine Sulfate (Morphine) 2 mg IVP Q4 PRN PRN Reason: Pain, severe (8-10) Multivitamins/Minerals (Therapeutic-M Tab) 1 tab PO DAILY [facility] Last Admin: 03/16/18 09:46 Dose: 1 tab Naloxone HCl (Narcan) 0.1 mg IVP Q2M PRN PRN Reason: Opiate reversal Oxycodone/Acetaminophen (Percocet 5/325 Mg Tab) 1 tab PO Q4 PRN PRN Reason: Pain, moderate (4-7) Stop: 02/05/18 12:51 Last Admin: 02/03/18 22:14 Dose: 1 tab Pantoprazole Sodium (Protonix Ec Tab) 40 mg PO DAILY [facility] Last Admin: 02/03/18 09:46 Dose: 40 mg Paroxetine HCl (Paxil) 20 mg PO DAILY [facility] Last Admin: 02/03/18 09:44 Dose: 20 mg Propranolol HCl (Inderal La) 60 mg PO DAILY [facility] Last Admin: 02/03/18 09:45 Dose: 60 mg Sennosides (Senokot Tab) 17.2 mg PO HS [facility] Last Admin: 02/03/18 21:08 Dose: 17.2 mg Sitagliptin Phosphate (Januvia) 50 mg PO DAILY [facility] Last Admin: 02/03/18 09:46 Dose: 50 mg - Labs Labs: 02/03/18 05:00 02/02/18 09:02 PT 12.4 Seconds (9.8-13.1) 02/03/18 05:00 INR 1.1 (0.9-1.2) 02/03/18 05:00 APTT 25.3 Seconds (25.6-37.1) L 02/03/18 05:00 Assessment and Plan (1) Status post lumbar laminectomy Status: Acute (2) COPD (chronic obstructive pulmonary disease) Status: Chronic (3) DM II (diabetes mellitus, type II), controlled Status: Chronic (4) HTN (hypertension) Status: Chronic (5) Hyperlipidemia Status: Chronic (6) Tobacco abuse Status: Chronic
--- NOTE | 2018-02-04 10:15 | CP.PCM.PN ---
Subjective - Date & Time of Evaluation Date of Evaluation: 02/04/18 Time of Evaluation: 10:15 - Subjective Subjective: Lying in bed comfortably. Had an episode of transient a fib yesterday. Now back in NSR. Vital signs are stable. Has continued drainage in DILAN drains, reduced volume. SpO2 remains good. WBC elevated at 19 (steroids?). Breath sounds are present bilaterally, diminished. No audible wheezing or bronchial breath sounds. Rare dry lower lobe rales. Heart sounds distant, regular rhythm. No dependant edema. No cyanosis. Continue present regimen. Neurosurgery followup. CXR requested. Patient has been on metoprolol ER 100mg OD as outpatient. On propanolol LA 60mg at the present time. Should be switched back to avoid any bronchospasm provocation. Objective - Vital Signs/Intake and Output Vital Signs (last 24 hours): Temp Pulse Resp BP Pulse Ox 98.0 F 84 18 132/64 99 02/04/18 08:17 02/04/18 08:51 02/04/18 08:17 02/04/18 08:51 02/04/18 08:17 Intake and Output: 02/03/18 02/04/18 23:59 11:59 Intake Total 700 940 Output Total 55 70 Balance 645 870 - Medications Medications: Current Medications Atorvastatin Calcium (Lipitor) 20 mg PO DAILY [facility] Last Admin: 02/04/18 08:51 Dose: 20 mg Dexamethasone (Decadron) 2 mg PO Q8 [facility] Last Admin: 02/04/18 08:50 Dose: 2 mg Docusate Sodium (Colace) 100 mg PO BID [facility] Last Admin: 02/04/18 08:49 Dose: 100 mg Furosemide (Lasix) 40 mg PO DAILY [facility] Last Admin: 02/04/18 08:50 Dose: 40 mg Gabapentin (Neurontin) 400 mg PO HS [facility] Last Admin: 02/03/18 21:08 Dose: 400 mg Cefazolin Sodium 1 gm/ Sodium (Chloride) 100 mls @ 100 mls/hr IVPB Q8 [facility] PRN Reason: Protocol Last Admin: 02/04/18 08:53 Dose: 100 mls/hr Insulin Human Lispro (Humalog) 0 units SC ACCU-CHECK [facility] PRN Reason: Protocol Last Admin: 02/04/18 06:41 Dose: 1 units Lisinopril (Zestril) 10 mg PO DAILY [facility] Last Admin: 02/04/18 08:51 Dose: 10 mg Morphine Sulfate (Morphine) 2 mg IVP Q4 PRN PRN Reason: Pain, severe (8-10) Multivitamins/Minerals (Therapeutic-M Tab) 1 tab PO DAILY [facility] Last Admin: 02/04/18 08:51 Dose: 1 tab Naloxone HCl (Narcan) 0.1 mg IVP Q2M PRN PRN Reason: Opiate reversal Oxycodone/Acetaminophen (Percocet 5/325 Mg Tab) 1 tab PO Q4 PRN PRN Reason: Pain, moderate (4-7) Stop: 02/05/18 12:51 Last Admin: 02/04/18 08:53 Dose: 1 tab Pantoprazole Sodium (Protonix Ec Tab) 40 mg PO DAILY [facility] Last Admin: 02/04/18 08:51 Dose: 40 mg Paroxetine HCl (Paxil) 20 mg PO DAILY [facility] Last Admin: 02/04/18 08:51 Dose: 20 mg Propranolol HCl (Inderal La) 60 mg PO DAILY [facility] Last Admin: 02/04/18 08:50 Dose: 60 mg Sennosides (Senokot Tab) 17.2 mg PO HS [facility] Last Admin: 02/03/18 21:08 Dose: 17.2 mg Sitagliptin Phosphate (Januvia) 50 mg PO DAILY [facility] Last Admin: 02/04/18 08:50 Dose: 50 mg - Labs Labs: 02/03/18 05:00 02/02/18 09:02 PT 12.4 Seconds (9.8-13.1) 02/03/18 05:00 INR 1.1 (0.9-1.2) 02/03/18 05:00 APTT 25.3 Seconds (25.6-37.1) L 02/03/18 05:00 Assessment and Plan (1) Status post lumbar laminectomy Status: Acute (2) COPD (chronic obstructive pulmonary disease) Status: Chronic (3) DM II (diabetes mellitus, type II), controlled Status: Chronic (4) HTN (hypertension) Status: Chronic (5) Hyperlipidemia Status: Chronic (6) Tobacco abuse Status: Chronic
--- NOTE | 2018-02-04 11:35 | CP.PCM.PN ---
Subjective - Date & Time of Evaluation Date of Evaluation: 02/04/18 Time of Evaluation: 11:30 - Subjective Subjective: Patient seen and examined bedside. Feeling well. With minimal discomfort down to lower extremities . No acute issues overnight .Hemodynamically stable Back on SR on monitor DILAN drains with 70 ml/65 ml output last 24 hours Objective - Vital Signs/Intake and Output Vital Signs (last 24 hours): Temp Pulse Resp BP Pulse Ox 98.0 F 84 18 132/64 99 02/04/18 08:17 02/04/18 08:51 02/04/18 08:17 02/04/18 08:51 02/04/18 08:17 Intake and Output: 02/04/18 02/04/18 06:59 18:59 Intake Total 1640 Output Total 125 Balance 1515 - Medications Medications: Current Medications Atorvastatin Calcium (Lipitor) 20 mg PO DAILY [facility] Last Admin: 02/04/18 08:51 Dose: 20 mg Dexamethasone (Decadron) 2 mg PO Q8 [facility] Last Admin: 02/04/18 08:50 Dose: 2 mg Docusate Sodium (Colace) 100 mg PO BID [facility] Last Admin: 02/04/18 08:49 Dose: 100 mg Furosemide (Lasix) 40 mg PO DAILY [facility] Last Admin: 02/04/18 08:50 Dose: 40 mg Gabapentin (Neurontin) 400 mg PO HS [facility] Last Admin: 02/03/18 21:08 Dose: 400 mg Cefazolin Sodium 1 gm/ Sodium (Chloride) 100 mls @ 100 mls/hr IVPB Q8 [facility] PRN Reason: Protocol Last Admin: 02/04/18 08:53 Dose: 100 mls/hr Insulin Human Lispro (Humalog) 0 units SC ACCU-CHECK [facility] PRN Reason: Protocol Last Admin: 02/04/18 06:41 Dose: 1 units Lisinopril (Zestril) 10 mg PO DAILY [facility] Last Admin: 02/04/18 08:51 Dose: 10 mg Morphine Sulfate (Morphine) 2 mg IVP Q4 PRN PRN Reason: Pain, severe (8-10) Multivitamins/Minerals (Therapeutic-M Tab) 1 tab PO DAILY [facility] Last Admin: 02/04/18 08:51 Dose: 1 tab Naloxone HCl (Narcan) 0.1 mg IVP Q2M PRN PRN Reason: Opiate reversal Oxycodone/Acetaminophen (Percocet 5/325 Mg Tab) 1 tab PO Q4 PRN PRN Reason: Pain, moderate (4-7) Stop: 02/05/18 12:51 Last Admin: 02/04/18 08:53 Dose: 1 tab Pantoprazole Sodium (Protonix Ec Tab) 40 mg PO DAILY [facility] Last Admin: 02/04/18 08:51 Dose: 40 mg Paroxetine HCl (Paxil) 20 mg PO DAILY [facility] Last Admin: 02/04/18 08:51 Dose: 20 mg Propranolol HCl (Inderal La) 60 mg PO DAILY [facility] Last Admin: 02/04/18 08:50 Dose: 60 mg Sennosides (Senokot Tab) 17.2 mg PO HS [facility] Last Admin: 02/03/18 21:08 Dose: 17.2 mg Sitagliptin Phosphate (Januvia) 50 mg PO DAILY [facility] Last Admin: 02/04/18 08:50 Dose: 50 mg - Labs Labs: 02/03/18 05:00 02/02/18 09:02 PT 12.4 Seconds (9.8-13.1) 02/03/18 05:00 INR 1.1 (0.9-1.2) 02/03/18 05:00 APTT 25.3 Seconds (25.6-37.1) L 02/03/18 05:00 - Constitutional Appears: Non-toxic, No Acute Distress - Head Exam Head Exam: ATRAUMATIC, NORMAL INSPECTION, NORMOCEPHALIC - Eye Exam Eye Exam: EOMI, Normal appearance, PERRL Pupil Exam: NORMAL ACCOMODATION - ENT Exam ENT Exam: Mucous Membranes Moist, Normal Exam - Neck Exam Neck Exam: Full ROM, Normal Inspection - Respiratory Exam Respiratory Exam: Clear to Ausculation Bilateral, NORMAL BREATHING PATTERN. absent: Rales, Rhonchi, Wheezes - Cardiovascular Exam Cardiovascular Exam: REGULAR RHYTHM, RRR, +S1, +S2. absent: JVD - GI/Abdominal Exam GI & Abdominal Exam: Soft, Normal Bowel Sounds. absent: Distended, Guarding, Tenderness, Rebound - Rectal Exam Rectal Exam: Deferred - Extremities Exam Extremities Exam: Full ROM, Normal Capillary Refill, Normal Inspection. absent : Calf Tenderness, Pedal Edema - Back Exam Back Exam: NORMAL INSPECTION Additional comments: DILAN drains to lower back - Neurological Exam Neurological Exam: Alert, Awake, CN II-XII Intact, Oriented x3 - Psychiatric Exam Psychiatric exam: Normal Affect, Normal Mood - Skin Skin Exam: Dry, Normal Color, Warm Assessment and Plan - Assessment and Plan (Free Text) Assessment: 72 yo female with history of DM2, HTN, HLD, active smoker , Chronic Low Back Pain with hemilaminectomy last year was admitted for decompressive right L5- S1 laminectomy and spinal fusion of L4-S1 02/01 due to worsening ,progressive radiculopathy of the right leg that failed conservative management. Post op placed under observation . Still with significant amount of drainage from DILAN drains 70ml/65 ml in the last 24 hours. With episode of Paroxysmal afib during this admission. 1. Low Back Pain s/p Laminectomy and Spinal Fusion by POD # 3 pain is controlled and able to ambulate DILAN drains to lower back with 70 ml/65 ml output last 24 hours continue monitoring . continue IV Cefazolin Decadron tapered to 2mg PO q 12 hrs hematology was consulted . received 2 unit PRBc post op 2. Intraop Bleeding / acute blood loss anemia s/p 2 unit PRBC transfusion stopped ASa 2 weeks priorhematology cosnulted .Given Vitamin K x 1 dose and Desmopressin x 1 dose H&H stable 3. New onset paroxysmal Afib back to SR on monitor HR 53 cardiology consulted on Inderal 4. DM2 BS still elevated but coming down hyperglycemia secondary to steroid continue Januvia 50mg PO daily check Hgb A1c 5. HTN BP stable continue Lisinopril and Propranolol 6. HLD Lipitor 40mg PO daily 7. Restless Leg Syndrome Neurontin 400mg PO HS 7. Leukocytosis most likely secondary to steroids. Will faustina decadron to 2 mg po Q12 continue Cefazolin 8. DVT prophylaxis venodyne boots while in bed
--- NOTE | 2018-02-04 15:02 | CARD ---
APPROVED REPORT EKG Measurement Heart [id number] <Conclusion> Atrial fibrillation Left bundle branch block Abnormal ECG
--- NOTE | 2018-02-04 17:33 | RAD ---
HISTORY: leukocytosis COMPARISON: 01/13/2018 TECHNIQUE: Chest PA and lateral FINDINGS: LUNGS: No active pulmonary disease. PLEURA: No significant pleural effusion identified. No pneumothorax apparent. CARDIOVASCULAR: Heart is normal in size. There is stable atherosclerotic change of the aorta. OSSEOUS STRUCTURES: No significant abnormalities. Degenerative changes are seen in the thoracic spine without compression fracture. VISUALIZED UPPER ABDOMEN: Normal. OTHER FINDINGS: Hilar regions are normal in outline. There is evidence of prior lower cervical spine surgery. Ribs are intact. IMPRESSION: No active disease.
[2018-02-04] MEDS ORDERED: Desmopressin 4 mcg/ml Inj (10 ml) IV ONE (18:22)
--- NOTE | 2018-02-04 18:35 | CP.PCM.PN ---
Subjective - Date & Time of Evaluation Date of Evaluation: 02/04/18 Time of Evaluation: 18:00 - Subjective Subjective: Has some back pain DILAN drainage about half what it was about 48hours ago s/p desmopressin Objective - Vital Signs/Intake and Output Vital Signs (last 24 hours): Temp Pulse Resp BP Pulse Ox 98.4 F 59 L 20 129/64 100 02/04/18 16:17 02/04/18 16:17 02/04/18 16:17 02/04/18 16:17 02/04/18 16:17 Intake and Output: 02/04/18 02/04/18 06:59 18:59 Intake Total 1640 Output Total 125 70 Balance 1515 -70 - Medications Medications: Current Medications Atorvastatin Calcium (Lipitor) 20 mg PO DAILY [facility] Last Admin: 02/04/18 08:51 Dose: 20 mg Dexamethasone (Decadron) 2 mg PO Q12 [facility] Docusate Sodium (Colace) 100 mg PO BID [facility] Last Admin: 02/04/18 17:36 Dose: 100 mg Furosemide (Lasix) 40 mg PO DAILY [facility] Last Admin: 02/04/18 08:50 Dose: 40 mg Gabapentin (Neurontin) 400 mg PO HS [facility] Last Admin: 02/03/18 21:08 Dose: 400 mg Cefazolin Sodium 1 gm/ Sodium (Chloride) 100 mls @ 100 mls/hr IVPB Q8 [facility] PRN Reason: Protocol Last Admin: 02/04/18 17:44 Dose: 100 mls/hr Desmopressin Acetate 10 mcg/ (Sodium Chloride) 52.5 mls @ 105 mls/hr IV STAT STA Stop: 02/04/18 18:53 Insulin Human Lispro (Humalog) 0 units SC ACCU-CHECK [facility] PRN Reason: Protocol Last Admin: 02/04/18 17:43 Dose: 2 units Lisinopril (Zestril) 10 mg PO DAILY [facility] Last Admin: 02/04/18 08:51 Dose: 10 mg Morphine Sulfate (Morphine) 2 mg IVP Q4 PRN PRN Reason: Pain, severe (8-10) Multivitamins/Minerals (Therapeutic-M Tab) 1 tab PO DAILY [facility] Last Admin: 02/04/18 08:51 Dose: 1 tab Naloxone HCl (Narcan) 0.1 mg IVP Q2M PRN PRN Reason: Opiate reversal Oxycodone/Acetaminophen (Percocet 5/325 Mg Tab) 1 tab PO Q4 PRN PRN Reason: Pain, moderate (4-7) Stop: 02/05/18 12:51 Last Admin: 02/04/18 14:08 Dose: 1 tab Pantoprazole Sodium (Protonix Ec Tab) 40 mg PO DAILY [facility] Last Admin: 02/04/18 08:51 Dose: 40 mg Paroxetine HCl (Paxil) 20 mg PO DAILY [facility] Last Admin: 02/04/18 08:51 Dose: 20 mg Propranolol HCl (Inderal La) 60 mg PO DAILY [facility] Last Admin: 02/04/18 08:50 Dose: 60 mg Sennosides (Senokot Tab) 17.2 mg PO HS [facility] Last Admin: 02/03/18 21:08 Dose: 17.2 mg Sitagliptin Phosphate (Januvia) 50 mg PO DAILY [facility] Last Admin: 02/04/18 08:50 Dose: 50 mg - Labs Labs: 02/03/18 05:00 02/02/18 09:02 PT 12.4 Seconds (9.8-13.1) 02/03/18 05:00 INR 1.1 (0.9-1.2) 02/03/18 05:00 APTT 25.3 Seconds (25.6-37.1) L 02/03/18 05:00 - Head Exam Head Exam: ATRAUMATIC - Eye Exam Eye Exam: Normal appearance - ENT Exam ENT Exam: Mucous Membranes Dry - Respiratory Exam Respiratory Exam: NORMAL BREATHING PATTERN - Cardiovascular Exam Cardiovascular Exam: +S1, +S2 - GI/Abdominal Exam GI & Abdominal Exam: Normal Bowel Sounds Assessment and Plan (1) Bleeding Assessment & Plan: improving drainage from DILAN drains s/p desmopressin; will redose today Status: Acute (2) Anemia Assessment & Plan: mild with stable H/H anemia of blood loss Status: Acute (3) Leukocytosis Assessment & Plan: neutrophilia suspect reactive Status: Acute
[2018-02-05] MEDS: ceFAZolin 1 GM in Sodium Chloride 0.9% 100 ML IVPB SCH ×2 (00:21→08:33)
[2018-02-05] MEDS: Oxycodone/Acetaminophen 5/325 mg Tab PO PRN ×2 (01:59→06:08)
[2018-02-05] MEDS: Insulin Lispro (humaLOG) 100 Units/ml Inj SC SCH (07:53)
[2018-02-05 08:12] VITALS: RESP 20
[2018-02-05 08:27] LABS: HEMOGLOBIN 10.2 g/dL (12.0-16.0); MEAN CELL VOLUME 90.2 fl (81.0-99.0); MEAN CORPUSCULAR HEMOGLOBIN 30.8 pg (27.0-31.0); MEAN CORPUSCULAR HGB CONC 34.1 g/dL (33.0-37.0); RBC 3.3 Mil/uL (3.80-5.20); RED CELL DISTRIBUTION WIDTH 12.7 % (11.5-14.5); WHITE BLOOD COUNT 13.2 K/uL (4.8-10.8)
[2018-02-05] MEDS: Propranolol 60 mg ER Cap PO SCH (08:35)
[2018-02-05] MEDS: Multivitamin With Minerals Tab PO SCH (08:36)
[2018-02-05] MEDS: Pantoprazole 40 mg EC Tab PO SCH (08:36)
[2018-02-05 08:57] LABS: ALB/GLOB RATIO 1.2 (1.0-2.1); ALBUMIN 3.2 g/dL (3.5-5.0); ALT/SGPT 24 U/L (9-52); AST/SGOT 23 U/L (14-36); BLOOD UREA NITROGEN 21 mg/dl (7-17); CALCIUM 9.5 mg/dL (8.4-10.2); GFR AFRICAN-AMERICAN > 60; GFR NON-AFRICAN AMERICAN > 60
--- NOTE | 2018-02-05 11:19 | CP.PCM.DIS ---
Provider - Provider Date of Admission: 02/03/18 11:54 Attending physician: Jimmy Mora MD Primary care physician: Kvng Felton MD Consults: neurosurgery consult Time Spent in preparation of Discharge (in minutes): 15 Hospital Course - Lab Results Lab Results: Most Recent Lab Values WBC 13.2 K/uL (4.8-10.8) H 02/05/18 07:40 RBC 3.30 Mil/uL (3.80-5.20) L 02/05/18 07:40 Hgb 10.2 g/dL (12.0-16.0) L 02/05/18 07:40 Hct 29.8 % (34.0-47.0) L 02/05/18 07:40 MCV 90.2 fl (81.0-99.0) 02/05/18 07:40 MCH 30.8 pg (27.0-31.0) 02/05/18 07:40 MCHC 34.1 g/dL (33.0-37.0) 02/05/18 07:40 RDW 12.7 % (11.5-14.5) 02/05/18 07:40 Plt Count 223 K/uL (130-400) 02/05/18 07:40 MPV 8.3 fl (7.2-11.7) 02/03/18 05:00 Neut % (Auto) 88.4 % (50.0-75.0) H 02/03/18 05:00 Lymph % (Auto) 6.3 % (20.0-40.0) L 02/03/18 05:00 [place] % (Auto) 5.2 % (0.0-10.0) 02/03/18 05:00 Eos % (Auto) 0.0 % (0.0-4.0) 02/03/18 05:00 Baso % (Auto) 0.1 % (0.0-2.0) 02/03/18 05:00 Neut # (Auto) 16.9 K/uL (1.8-7.0) H 02/03/18 05:00 Lymph # (Auto) 1.2 K/uL (1.0-4.3) 02/03/18 05:00 [place] # (Auto) 1.0 K/uL (0.0-0.8) H 02/03/18 05:00 Eos # (Auto) 0.0 K/uL (0.0-0.7) 02/03/18 05:00 Baso # (Auto) 0.0 K/uL (0.0-0.2) 02/03/18 05:00 Neutrophils % (Manual) 90 % (42-75) H 02/03/18 05:00 Band Neutrophils % 2 % (0-2) 02/03/18 05:00 Lymphocytes % (Manual) 4 % (20-50) L 02/03/18 05:00 Reactive Lymphs % 1 % (0-0) H 02/03/18 05:00 Monocytes % (Manual) 3 % (0-10) 02/03/18 05:00 Platelet Estimate Normal (NORMAL) 02/03/18 05:00 Large Platelets Present 02/03/18 05:00 Giant Platelets Present 02/03/18 05:00 Poikilocytosis (manual Slight 02/03/18 05:00 Anisocytosis (manual) Slight 02/03/18 05:00 Ovalocytes Slight 02/03/18 05:00 PT 12.4 Seconds (9.8-13.1) 02/03/18 05:00 INR 1.1 (0.9-1.2) 02/03/18 05:00 APTT 25.3 Seconds (25.6-37.1) L 02/03/18 05:00 Fibrinogen 321 mg/dl (200-400) 02/03/18 05:00 Sodium 134 mmol/l (132-148) 02/05/18 07:40 Potassium 4.4 MMOL/L (3.6-5.0) 02/05/18 07:40 Chloride 93 mmol/L (98-107) L 02/05/18 07:40 Carbon Dioxide 30 mmol/L (22-30) 02/05/18 07:40 Anion Gap 15 (10-20) 02/05/18 07:40 BUN 21 mg/dl (7-17) H 02/05/18 07:40 Creatinine 0.7 mg/dl (0.7-1.2) 02/05/18 07:40 Est GFR ( Amer) > 60 02/05/18 07:40 Est GFR (Non-Af Amer) > 60 02/05/18 07:40 POC Glucose (mg/dL) 166 mg/dL (65-110) H 02/05/18 05:57 Random Glucose 149 mg/dL (65-105) H 02/05/18 07:40 Calcium 9.5 mg/dL (8.4-10.2) 02/05/18 07:40 Total Bilirubin 0.6 mg/dl (0.2-1.3) 02/05/18 07:40 AST 23 U/L (14-36) 02/05/18 07:40 ALT 24 U/L (9-52) 02/05/18 07:40 Alkaline Phosphatase 47 U/L (38-126) 02/05/18 07:40 Total Protein 6.0 G/DL (6.3-8.2) L 02/05/18 07:40 Albumin 3.2 g/dL (3.5-5.0) L 02/05/18 07:40 Globulin 2.8 gm/dL (2.2-3.9) 02/05/18 07:40 Albumin/Globulin Ratio 1.2 (1.0-2.1) 02/05/18 07:40 Blood Type O NEGATIVE 02/01/18 07:20 Antibody Screen Negative 02/01/18 07:20 Crossmatch See Detail 02/01/18 07:20 BBK History Checked Patient has bt 02/01/18 07:20 - Hospital Course Hospital Course: 72 y/o female with history of DM2, HTN, HLD, active smoker , Chronic Low Back Pain with hemilaminectomy last year was admitted for decompressive right L5- S1 laminectomy and spinal fusion of L4-S1 02/01 due to worsening ,progressive radiculopathy of the right leg that failed conservative management. Post op placed under observation .Was kept post ob for significant output from Malcolm drains. Hematology was consulted since patient had significant bleeding intraop. she was transfused with 2 unit PRBc and given Vitamin K and Desmopresin. During this stay she also had episode of new onset paroxysmal afib that converted to SR . cardiology was consulted and recommended continuation of Inderal . Echo showed no abnormalities. patient is hemodynamically stable, afebrile, pain free, ambulating freely in unit . MALCOLM drain output has decreased significantly respectively Right 40 ml and left 30 ml output last [address] lynn and recommended removal of MALCOLM drains and discharge patient home. Drains removed and will d/c patient home with follow up with Dr. lynn and Dr. Felton as outpatient Still with significant amount of drainage from MALCOLM drains 70ml/65 ml in the last 24 hours. 1. Low Back Pain s/p Laminectomy and Spinal Fusion by POD # 4 pain is controlled and able to ambulate MALCOLM drains removed cleared by Dr. Lynn for discharge received IV Cefazolin post op empirically Decadron tapered to 2mg PO q 12 hrs. will faustina to 2 mg po daily today than d/ c hematology was consulted . received 2 unit PRBc post op 2. Intraop Bleeding / acute blood loss anemia s/p 2 unit PRBC transfusion stopped ASa 2 weeks prior hematology consulted .Given Vitamin K x 1 dose and Desmopressin x 1 dose H&H stable 3. New onset paroxysmal Afib back to SR on monitor HR 53 cardiology consulted on Inderal at home Can resume ASA outpatient 4. DM2 BS still elevated but coming down hyperglycemia secondary to steroid continue Januvia 50mg PO daily check Hgb A1c with PMD 5. HTN BP stable continue Lisinopril and Propranolol 6. HLD Lipitor 40mg PO daily 7. Restless Leg Syndrome Neurontin 400mg PO HS 7. Leukocytosis most likely secondary to steroids. Will faustina decadron to 2 mg po daily today than d/c continue Cefazolin 8. DVT prophylaxis venodyne boots while in bed Discharge Exam - Head Exam Head Exam: ATRAUMATIC, NORMAL INSPECTION, NORMOCEPHALIC - Eye Exam Eye Exam: EOMI, Normal appearance, PERRL Pupil Exam: NORMAL ACCOMODATION - ENT Exam ENT Exam: Mucous Membranes Moist, Normal Exam - Neck Exam Neck exam: Full Rom, Normal Inspection - Respiratory Exam Respiratory Exam: Clear to PA & Lateral, NORMAL BREATHING PATTERN. absent: Rales, Rhonchi, Wheezes - Cardiovascular Exam Cardiovascular Exam: REGULAR RHYTHM, RRR, +S1, +S2. absent: JVD - GI/Abdominal Exam GI & Abdominal Exam: Normal Bowel Sounds, Soft. absent: Distended, Guarding, Rebound, Tenderness - Rectal Exam Rectal Exam: Deferred - Extremities Exam Extremities exam: normal capillary refill, normal inspection, pedal pulses present - Back Exam Back exam: NORMAL INSPECTION Additional comments: mi lower back surgical incision healing well - Neurological Exam Neurological exam: Alert, CN II-XII Intact, Oriented x3, Reflexes Normal - Psychiatric Exam Psychiatric exam: Normal Affect, Normal Mood - Skin Skin Exam: Dry, Intact, Normal Color, Warm Discharge Plan - Discharge Medications Prescriptions: Docusate [Colace] 100 mg PO BID #30 cap Gabapentin [Neurontin] 400 mg PO HS #30 cap - Follow Up Plan Condition: GOOD Disposition: HOME/ ROUTINE Patient education suggested?: Yes Instructions: Spinal Fusion (DC), Laminectomy (DC) Referrals: Ralph Lynn MD [Staff Provider] - Kvng Felton MD [Primary Care Provider] -
[2018-02-05 12:19] VITALS: BP 150/75; PULSE 91; TEMP 98.6; O2SAT 97
== END 2018-02-05 13:13 | disposition home or self-care (01) | DRG 460 ==
LOC: H.OPSURG 06:18 → H.TEL 11:54 → OBSVTOIN 02-03 11:54
PROC: 01NB0ZZ Release Lumbar Nerve, Open Approach (ICD-10-PCS; 2018-02-01)
PROC: 30233N1 Transfusion of Nonautologous Red Blood Cells into Peripheral Vein, Percutaneous Approach (ICD-10-PCS; 2018-02-01)
PROC: 0SG30J1 Fusion of Lumbosacral Joint with Synthetic Substitute, Posterior Approach, Posterior Column, Open Approach (ICD-10-PCS; principal; 2018-02-01 07:45)
DX: M43.16 Spondylolisthesis, lumbar region (principal); D62 Acute posthemorrhagic anemia; E11.65 Type 2 diabetes mellitus with hyperglycemia; I48.0 Paroxysmal atrial fibrillation; G25.81 Restless legs syndrome; J43.9 Emphysema, unspecified; D72.829 Elevated white blood cell count, unspecified; F17.200 Nicotine dependence, unspecified, uncomplicated; M48.061 Spinal stenosis, lumbar region without neurogenic claudication; M47.816 Spondylosis without myelopathy or radiculopathy, lumbar region; M54.16 Radiculopathy, lumbar region; E78.00 Pure hypercholesterolemia, unspecified; E78.5 Hyperlipidemia, unspecified; H35.30 Unspecified macular degeneration; I10 Essential (primary) hypertension; K21.9 Gastro-esophageal reflux disease without esophagitis; T38.0X5A Adverse effect of glucocorticoids and synthetic analogues, initial encounter; Z79.84 Long term (current) use of oral hypoglycemic drugs; Z90.49 Acquired absence of other specified parts of digestive tract; Z96.651 Presence of right artificial knee joint

== ENCOUNTER 2018-10-03 06:30 | Day surgery (SDC) | payer MEDICARE ==
[2017-04-26 16:32] VITALS: BMI 23.0
[2018-10-03] MEDS ORDERED: Lactated Ringer's 1,000 ML IV ONE (07:14)
[2018-10-03] MEDS ORDERED: Iohexol 300 10 ML ONE (08:16)
[2018-10-03] MEDS ORDERED: Dexamethasone 4 mg/1 ml ONE (08:16)
[2018-10-03] MEDS ORDERED: Midazolam 2 MG/2 ML VIAL ONE (09:22)
[2018-10-03] MEDS ORDERED: Dexamethasone 4 mg/1 ml IM ONE (09:23)
[2018-10-03] MEDS ORDERED: Lactated Ringer's 1,000 ML IV SCH (09:45)
[2018-10-03 11:10] VITALS: RESP 18
[2018-10-03 15:11] VITALS: BP 149/85; PULSE 65; TEMP 97; O2SAT 96
--- NOTE | 2018-10-03 20:47 | OP ---
PROCEDURE DATE: 10/03/2018 PREOPERATIVE DIAGNOSIS: Cervical radiculopathy. POSTOPERATIVE DIAGNOSIS: Cervical radiculopathy. PROCEDURE: Cervical epidural steroid injection. ANESTHESIOLOGIST: Kvng Lock MD SURGEON: Frank Montoya MD TYPE OF ANESTHESIA: Monitored anesthesia care. COMPLICATIONS: None. SPECIMEN: None. DESCRIPTION OF PROCEDURE: Procedure is as follows. After we had a discussion of the procedure with the patient including its risks, benefits, alternatives, outcome data, possibility of no effect or increased pain, the patient consented to the procedure. She denies any recent infection, bleeding tendencies, or being on anticoagulants. A decision was then made to proceed to the OR. The patient was placed on the fluoroscopy table in a prone position using a head rest. The neck was prepped and draped in the usual sterile fashion. A sterile technique was adhered to during the entire procedure. The C7-T1 interlaminar space was first identified in the anteroposterior view. The skin overlying this area was then infiltrated with 1% lidocaine using a 25-gauge needle. Subsequently, a 20-gauge 3.5-inch Tuohy needle was then incrementally advanced under fluoroscopic guidance using loss of resistance technique. After appropriate depth was reached, the fluoroscopy was changed to a lateral view to guide the rest of the needle advancement. Loss of resistance was reached at approximately 6 cm depth. This was confirmed by injecting approximately 1 mL of Isovue contrast. After appropriate spread of the contrast was demonstrated, approximately 5 mL of Decadron and normal saline mixture was gradually injected. The patient denies any pain or paresthesia during the injection. The needle was then removed. The patient's neck was cleaned, and dry bandages were applied. The patient was then transferred to recovery area in good condition without any signs of INSTRUMENT REPAIRER toxicity or any neurological deficit. She will be following in the office in approximately two to four weeks. Frank Montoya MD
--- NOTE | 2018-10-05 15:58 | RAD ---
Date of service: 10/03/2018 PROCEDURE: Fluoroscopy up to 1 hr. HISTORY: PAIN MANAGEMENT COMPARISON: None TECHNIQUE: Standard protocol for this study/examination. FINDINGS: Total fluoroscopic time (continuous mode) utilized during the procedure 18.9 seconds. Total exam DLP: 3.52 (mGy). IMPRESSION: Less than 1 hr fluoroscopic assistance provided during performance of the procedure.
== END 2018-10-03 15:30 | disposition home or self-care (01) ==
LOC: H.OPSURG 06:30
PROVIDERS: ATTEND Anesthesiology
DX: M54.12 Radiculopathy, cervical region (principal); I48.91 Unspecified atrial fibrillation; M19.90 Unspecified osteoarthritis, unspecified site; I25.10 Atherosclerotic heart disease of native coronary artery without angina pectoris; J44.9 Chronic obstructive pulmonary disease, unspecified; E11.9 Type 2 diabetes mellitus without complications; E78.5 Hyperlipidemia, unspecified; I10 Essential (primary) hypertension
CPT/HCPCS: 62321; 82948; J1100; J2250; J3010; J7120; Q9967

== ENCOUNTER 2018-11-10 06:24 | Day surgery (SDC) | payer MEDICARE ==
[2017-04-26 16:32] VITALS: BMI 23.0
[2018-11-10 07:06] VITALS: RESP 18
[2018-11-10] MEDS ORDERED: Lactated Ringer's 1,000 ML IV ONE (07:11)
[2018-11-10] MEDS ORDERED: Dexamethasone 4 mg/1 ml ONE (08:09)
[2018-11-10] MEDS ORDERED: Iohexol 300 10 ML ONE (08:10)
[2018-11-10] MEDS ORDERED: Dexamethasone 4 mg/1 ml IM ONE (08:26)
[2018-11-10] MEDS ORDERED: Iohexol 300 10 ML IJ ONE (08:26)
[2018-11-10 11:15] VITALS: BP 139/80; PULSE 61; TEMP 97.6
[2018-11-10 11:16] VITALS: O2SAT 95
--- NOTE | 2018-11-10 15:30 | RAD ---
Date of service: 11/10/2018 PROCEDURE: Intraoperative Fluoroscopy. HISTORY: Pain management FINDINGS: Fluoroscopic assistance was provided. Radiation dose = 27.3 sec. Radiation dose = 3.63 mGy. Please refer to the operative report from ANUSHA Chavez.
--- NOTE | 2018-11-10 21:34 | OP ---
PROCEDURE DATE: 11/10/2018 PREOPERATIVE DIAGNOSIS: Cervical radiculopathy. POSTOPERATIVE DIAGNOSIS: Cervical radiculopathy. PROCEDURE: Cervical epidural steroid injection. ANESTHESIOLOGIST: Christina Loyola MD SURGEON: Frank Montoya MD TYPE OF ANESTHESIA: Monitored anesthesia care. COMPLICATIONS: None. SPECIMEN: None. DESCRIPTION OF PROCEDURE: Procedure is as follows. After we had a discussion of the procedure with the patient including its risks, benefits, alternatives, outcome data, possibility of no effect or increased pain, the patient consented to the procedure. She denies any recent infection, bleeding tendencies, or being on anticoagulants. A decision was then made to proceed to the OR. The patient was placed on the fluoroscopy table in prone position using a head positioner. The arms were placed on the side of the body. The neck was prepped and draped in the usual sterile fashion, and a sterile technique was adhered to during the entire procedure. The C7-T1 interlaminar space was first identified in the anteroposterior view. Cephalad angulation was used to maximize the opening to this area. The skin overlying this area was then infiltrated with 1% lidocaine using 25-gauge needle. Subsequently, a 20-gauge 3.5-inch Tuohy needle was then incrementally advanced under fluoroscopic guidance using loss of resistance technique. The needle advancement was guided under lateral fluoroscopy views. Loss of resistance was reached at approximately 6 cm depth. At this point, approximately 0.5 mL of Isovue contrast was injected showing appropriate spread in the epidural space. At this point, approximately 5 mL of Decadron and normal saline mixture was gradually injected. The needle was then removed. The patient's neck was cleaned and dry bandages were applied. The patient was then transferred to recovery area in good condition without any signs of CHERRY DIPPER toxicity or any neurological deficit. She will be following in the office in approximately two to four weeks. Frank Montoya MD
== END 2018-11-10 11:40 | disposition home or self-care (01) ==
LOC: H.OPSURG 06:24
PROVIDERS: ATTEND Anesthesiology
DX: M54.12 Radiculopathy, cervical region (principal); I48.91 Unspecified atrial fibrillation; M19.90 Unspecified osteoarthritis, unspecified site; E11.9 Type 2 diabetes mellitus without complications; I10 Essential (primary) hypertension; G47.33 Obstructive sleep apnea (adult) (pediatric)
CPT/HCPCS: 62321; 82948; J1100; J7120; Q9967